=== PATIENT | male | born 1970 | race Caucasian/White ===

== ENCOUNTER → 2017-10-17 | Outpatient (CLI) | payer OTHER ==
[~2017-10-17] MED LIST: PRLSR20 PO; SIMV40TA2 PO
--- NOTE | 2017-10-17 17:16 | DIAGNOSTIC IMAGING REPORT ---
CHEST 2 VIEWS ROUTINE CLINICAL HISTORY: 47 years-old Male presenting with DYSPNEA ON EXERTION. TECHNIQUE: PA and lateral views of the chest were obtained. COMPARISON: None. FINDINGS: Cardiomediastinal silhouette normal. Minimal left basilar bandlike opacity. Mildly low lung volumes with hypoventilatory changes. No other focal infiltrate. No pleural effusion or pneumothorax. Osseous structures normal. Upper abdomen normal. IMPRESSION: 1. Minimal left basilar atelectasis or scarring. Mildly low lung volumes with hypoventilatory changes. Electronically signed by: Kelton Calderon M.D. 10/17/2017 5:15 PM Dictated Date/Time: 10/17/2017 5:14 PM
--- NOTE | 2017-10-17 17:18 | DIAGNOSTIC IMAGING REPORT ---
L KNEE 1 OR 2 VIEWS ROUTINE, R KNEE 1 OR 2 VIEWS ROUTINE CLINICAL HISTORY: 47 years-old Male presenting with KNEE PAIN. TECHNIQUE: Frontal, lateral, and sunrise views of the right and left knees were obtained. COMPARISON: None. FINDINGS: Right knee: No acute fracture or malalignment. No advanced degenerative change. No radiographic soft tissue abnormality. Left knee: No acute fracture or malalignment. No advanced degenerative change. No radiographic soft tissue abnormality. IMPRESSION: 1. No acute osseous injury of the right or left knee. Electronically signed by: Kelton Calderon M.D. 10/17/2017 5:17 PM Dictated Date/Time: 10/17/2017 5:15 PM
== END | disposition home or self-care (01) ==
LOC: MERGE 16:43 → C.RAD1850 16:43
PROVIDERS: ATTEND Internal Medicine
DX: R06.09 Other forms of dyspnea (principal); M25.561 Pain in right knee; M25.562 Pain in left knee

== ENCOUNTER → 2017-11-06 | Outpatient (CLI) | payer OTHER ==
[2017-11-06 10:07] LABS: BASO % 1.7 %; BASO ABS # 0.12 K/uL (0-0.2); EOS % 7.1 %; HEMATOCRIT 46.4 % (42-52); HEMOGLOBIN 16.1 g/dL (14.0-18.0); IG# 0.02 K/uL (0.00-0.02); LYMPH % 30.4 %; LYMPH ABS # 2.14 K/uL (1.2-3.4); MEAN CELL VOLUME 95.5 fL (80-100); MEAN CORPUSCULAR HEMOGLOBIN 33.1 pg (25-34); MEAN CORPUSCULAR HGB CONC 34.7 g/dl (32-36); MEAN PLATELET VOLUME 8.9 fL (7.4-10.4); MONO % 10.4 %; MONO ABS # 0.73 K/uL (0.11-0.59); NEUT % 50.1 %; NEUT ABS # 3.52 K/uL (1.4-6.5); PLATELET COUNT 270 K/uL (130-400); RED CELL DISTRIBUTION WIDTH CV 12.7 % (11.5-14.5); RED CELL DISTRIBUTION WIDTH SD 44.2 fL (36.4-46.3); WHITE BLOOD COUNT 7.03 K/uL (4.8-10.8)
[2017-11-06 10:48] LABS: ALBUMIN 3.7 gm/dl (3.4-5.0); ALT/SGPT 57 U/L (12-78); BLOOD UREA NITROGEN 18 mg/dl (7-18); CALCIUM 8.8 mg/dl (8.5-10.1); CARBON DIOXIDE 22 mmol/L (21-32); CREATININE 0.84 mg/dl (0.60-1.40); GLUCOSE 94 mg/dl (70-99); POTASSIUM 4.3 mmol/L (3.5-5.1); SODIUM 138 mmol/L (136-145)
[2017-11-06 10:57] LABS: ALKALINE PHOSPHATASE 73 U/L (45-117); AST/SGOT 23 U/L (15-37); CHOLESTEROL 284 mg/dl (0-200); LDL CHOLESTEROL CALCULATED 197 mg/dl; TOTAL PROTEIN 7.6 gm/dl (6.4-8.2)
== END | disposition home or self-care (01) ==
LOC: C.LAB1850 09:15
PROVIDERS: ATTEND Internal Medicine
DX: R10.9 Unspecified abdominal pain (principal); Z68.39 Body mass index [BMI] 39.0-39.9, adult; E78.5 Hyperlipidemia, unspecified

== ENCOUNTER 2021-02-26 06:40 | Observation (INO) ==
--- NOTE | 2021-01-04 14:13 | PAT Medication Instructions ---
Medication Instructions Date of Service January 04, 2021 Home Medications Medication Instructions Recorded atorvastatin 80 mg tablet 80 mg PO QPM #90 tab 07/06/20 tramadol 50 mg tablet 50 mg PO Q6H PRN #30 tab 12/01/20 tramadol 50 mg tablet 50 mg PO Q6H PRN #30 tab 12/01/20 tramadol 50 mg tablet 50 mg PO Q8H PRN #30 tab 01/01/21 albuterol sulfate 90 mcg/actuation aerosol inhaler 2 puffs INH Q6H PRN atorvastatin 80 mg tablet 80 mg PO QPM tramadol PRN allopurinol 100 mg PO QAM losartan 100 mg PO QAM meloxicam [Mobic] 15 mg PO QAM metoprolol tartrate 25 mg PO QAM naproxen 500 mg PO BID PRN omeprazole 20 mg PO QPM ASK your surgeon for instructions meloxicam [Mobic] 15 mg PO QAM naproxen 500 mg PO BID PRN Take morning of surgery With a small sip of water, OTHERWISE NOTHING TO EAT OR DRINK AFTER MIDNIGHT: albuterol sulfate 90 mcg/actuation aerosol inhaler 2 puffs INH Q6H PRN (use if needed; please bring rescue inhaler with you to hospital day of surgery if possible) tramadol PRN (okay to take up to 4 hours prior to surgery if needed) allopurinol 100 mg PO QAM metoprolol tartrate 25 mg PO QAM Take evening before surgery albuterol sulfate 90 mcg/actuation aerosol inhaler 2 puffs INH Q6H PRN (if needed) atorvastatin 80 mg tablet 80 mg PO QPM tramadol PRN (if needed) omeprazole 20 mg PO QPM Other Notes If you have any questions please call us at [phone] or [phone] or [phone] or [phone]
--- NOTE | 2021-01-10 14:28 | Anesthesiology Consultation ---
Date of Service January 10, 2021 Assessment & Plan (1) Encounter for pre-operative examination: - COVID screening: Per assessment on 01/10: Travel screen negative, no known COVID-19 positive contacts or current COVID-19 related symptoms. Surgeon arranging preop COVID testing. Awaiting results. - ETOH use: 5 beers + david at night (no morning ETOH use) Chart Review Chart Review: Acceptable Risk for Surgery and Patient seen in Pre Admission Testing Teaching & Discussion Pre-Anesthesia Teaching/Discussion Notes: Instructed NPO after midnight before surgery,except medications with 15 cc of water. Medication instructions provided according to the PAT guidelines. History Surgery Operation Date: 02/02/21 07:00 Proposed Procedures p Bilateral Total Knee Arthroplasty - Kodi Singh, Height/Weight Height: 5 ft 9 in Weight: 133.2 kg Allergies Allergy/AdvReac Type Severity Reaction Status Date / Time No Known Drug Allergies Allergy Unknown Verified 01/02/21 11:50 Medications Home Medications Medication Instructions Recorded Confirmed Last Taken albuterol sulfate 90 mcg/actuation 2 puffs INH Q6H PRN 02/20/19 01/02/21 Unknown aerosol inhaler atorvastatin 80 mg tablet 80 mg PO QPM #90 tab 07/06/20 01/02/21 Unknown tramadol 50 mg tablet 50 mg PO Q6H PRN #30 tab 12/01/20 01/02/21 Unknown tramadol 50 mg tablet 50 mg PO Q6H PRN #30 tab 12/01/20 01/02/21 Unknown tramadol 50 mg tablet 50 mg PO Q8H PRN #30 tab 01/01/21 01/02/21 Unknown allopurinol 100 mg PO QAM 01/02/21 01/02/21 Unknown losartan 100 mg PO QAM 01/02/21 01/02/21 Unknown meloxicam [Mobic] 15 mg PO QAM 01/02/21 01/02/21 Unknown metoprolol tartrate 25 mg PO QAM 01/02/21 01/02/21 Unknown naproxen 500 mg PO BID PRN 01/02/21 01/02/21 Unknown omeprazole 20 mg PO QPM 01/02/21 01/02/21 Unknown Past Medical History Medical History (Updated 01/10/21 @ 14:42 by Beth Drew) GERD (gastroesophageal reflux disease) controlled Morbid obesity Obstructive sleep apnea count not tolerate CPAP Exercise / Class Metabolic Activity III < 4 Walking/Shop/Light housework Past Family History Family History Family/Other Myocardial infarction Grandfather Lung disease Hypertension Mother Kidney stones Gallbladder disease Uncle Alcohol abuse Stroke Past Surgical History Surgical History H/O: vasectomy History of tooth extraction WTE Past Anesthesia History No Hx of Anesthesia Complications and No Family Hx of Anesthesia Complications History of PONV No Hx of PONV and No Hx of Motion Sickness Social History Smoking Status: Current every day smoker tobacco type: cigarettes and smokeless tobacco Smoking cigarettes per day: 15 cigs/day (tobacco use x 30 years) Do You Dip or Chew Tobacco: Yes (1 can/3-4 days- none DOS) Hx Alcohol Use: Yes Alcohol type: beer and wine alcohol intake frequency: 3 or more drinks per day (5 beers + david at night (n o morning ETOH use)) Hx Substance Use: No Review of Systems Patient denies chest pain, shortness of breath, fever, chills, cough, wheezing, palpitations. Physical Exam Vital Signs VITALS BP 147/94 P 80 TEMP 98.5 SP02 95%RA RESP 16 PHYSICAL Full cervical extension range of motion. Full TMJ range of motion. TMD 4 finger breaths Mallampati Score 2 Dentition: intact Lungs: clear throughout to auscultation Cardiac: regular rate and rhythm, no murmurs noted Spine: normal Carotid arteries: negative bruit Extremities: no edema Very thick neck Testing Laboratory Results 01/10/21 14:55 01/10/21 14:55 PT 9.9 Seconds (9.0-12.0) 01/10/21 14:55 INR 1.0 (0.9-1.1) 01/10/21 14:55 APTT 25.1 Seconds (21.0-31.0) 01/10/21 14:55 Blood Type AB Negative 01/10/21 14:55 Antibody Screen NEGATIVE 01/10/21 14:55 Electrocardiogram Date: 01/10/21 Findings: + NSR @ (73) Chest X-Ray Date: 01/10/21 FINDINGS:Cardiac silhouette is upper limits of normal in size. Mild left lung base opacities suggest atelectasis versus scarring. There is blunting of the costophrenic angles with mild hyperinflation. No pneumothorax, large pleural effusion or overt pulmonary edema. Bones of the chest appear grossly intact. IMPRESSION: No acute process.
--- NOTE | 2021-01-10 15:28 | XRay Report ---
XR chest Pre-admission PA/Lat HISTORY: 50 years-old Male pat chronic left knee pain with tricompartmental osteoarthritis COMPARISON: Chest radiographs 06/16/2018 TECHNIQUE: PA and lateral views of the chest FINDINGS: Cardiac silhouette is upper limits of normal in size. Mild left lung base opacities suggest atelectas is versus scarring. There is blunting of the costophrenic angles with mild hyperinflation. No pneumot horax, large pleural effusion or overt pulmonary edema. Bones of the chest appear grossly intact. IMPRESSION: No acute process. ACT 112: Negative or not required by law. The above report was generated using voice recognition software. It may contain grammatical, syntax o r spelling errors. Electronically signed by: Eliseo Ho M.D. 01/10/2021 3:27 PM
[2021-01-10 15:42] LABS: Basophils # (auto) 0.08 K/uL (0-0.2); Basophils % (auto) 1.1 %; Eosinophils # (auto) 0.39 K/uL (0-0.5); Eosinophils % (auto) 5.5 %; Hematocrit (blood only) 46.7 % (42-52); Hemoglobin 16.3 g/dL (14.0-18.0); Immature Granulocytes # (auto) 0.01 K/uL (0.00-0.02); Immature Granulocytes % (auto) 0.1 %; Lymphocytes % (auto) 29.7 %; Mean Corpuscular Hemoglobin 33.2 pg (25-34); Mean Corpuscular Hgb Conc 34.9 g/dL (32-36); Mean Corpuscular Volume 95.1 fL (80-100); Monocytes # (auto) 0.68 K/uL (0.11-0.59); Monocytes % (auto) 9.6 %; Platelet Count 249 K/uL (130-400); RDW Coefficient of Variation 12.6 % (11.5-14.5); RDW Standard Deviation 43.5 fL (36.4-46.3); Red Blood Count 4.91 M/uL (4.7-6.1); White Blood Count 7.06 K/uL (4.8-10.8)
[2021-01-10 15:55] LABS: Partial Thromboplastin Time 25.1 Seconds (21.0-31.0); Prothrombin Time 9.9 Seconds (9.0-12.0)
[2021-01-10 16:16] LABS: Calcium 9.9 mg/dl (8.5-10.1); Creatinine Clr Calc Pharmacy 135.9 ml/min; Est GFR (African American) 116.1; Est GFR (Non-African American) 100.2; Potassium 3.9 mmol/L (3.5-5.1)
--- NOTE | 2021-01-10 16:45 | Electrocardiogram Report ---
Test Reason : Blood Pressure : / mmHG Vent. Rate : 073 BPM Atrial Rate : 073 BPM P-R Int : 176 ms QRS Dur : 088 ms QT Int : 406 ms P-R-T Axes : 056 047 048 degrees QTc Int : 447 ms Normal sinus rhythm Normal ECG No previous ECGs available Confirmed by Lloyd Remy ([id number]) on 01/10/2021 4:44:40 PM Referred By: Kodi Singh Confirmed By:Lloyd Remy
--- NOTE | 2021-02-22 14:00 | History & Physical Report ---
Date of Service February 22, 2021 Assessment & Plan (1) Osteoarthritis of knees, bilateral: We will proceed with bilateral total knee arthroplasties. Postoperatively he will be kept overnight in the hospital for postoperative medical management and started on aspirin for DVT prophylaxis. He plans to use energy physical therapy upon discharge. He understands she is at increased risk for the procedure due to his BMI of 43.4 and his smoking habit, which he claims he stopped smoking 4 weeks ago. History of Present Illness Chief Complaint: Osteoarthritis of bilateral knees Primary Care Provider: José Luis Ramirez MD Marcus is a pleasant 50-year-old male who is been having a 10-year history of bilateral knee pain. He has been receiving injections of his knees over the past 10 years. X-rays and MRI show advanced osteoarthritis of his knees with his left worse than his right. After failing years of conservative treatment, he has elected proceed with bilateral total knee arthroplasties.. Allergies Allergy/AdvReac Type Severity Reaction Status Date / Time No Known Drug Allergies Allergy Unknown Verified 01/02/21 11:50 Home Medications Medication Instructions Recorded Confirmed Type albuterol sulfate 90 mcg/actuation 2 puffs INH Q6H PRN 02/20/19 02/14/21 History aerosol inhaler atorvastatin 80 mg tablet 80 mg PO QPM #90 tab 07/06/20 02/14/21 Rx tramadol 50 mg tablet 50 mg PO Q6H PRN #30 tab 12/01/20 02/14/21 Rx tramadol 50 mg tablet 50 mg PO Q6H PRN #30 tab 12/01/20 02/14/21 Rx tramadol 50 mg tablet 50 mg PO Q8H PRN #30 tab 01/01/21 02/14/21 Rx losartan 100 mg PO QAM 01/02/21 02/14/21 History meloxicam [Mobic] 15 mg PO QAM 01/02/21 02/14/21 History naproxen 500 mg PO BID PRN 01/02/21 02/14/21 History allopurinol 100 mg tablet 100 mg PO QAM #90 tab 02/02/21 02/14/21 Rx metoprolol tartrate 25 mg tablet 25 mg PO Q12H #180 tab 02/07/21 02/14/21 Rx omeprazole 20 mg capsule,delayed 20 mg PO QPM #30 cap 02/22/21 Rx release Past Med/Surg History Medical History GERD (gastroesophageal reflux disease) controlled Morbid obesity Obstructive sleep apnea count not tolerate CPAP Surgical History H/O: vasectomy History of tooth extraction WTE Family History Family/Other Myocardial infarction Grandfather Lung disease Hypertension Mother Kidney stones Gallbladder disease Uncle Alcohol abuse Stroke Social History Smoking Status: Never smoker packs per day: 1; Cigarettes Per Day: 15 cigs/day (tobacco use x 30 years); Second Hand Exposure: Yes; Hx Alcohol Use: Yes Alcohol type: beer and hard liquor Alcohol Intake Frequency Comment: Pt reported drinking one 30 pack weekly and one 2.75 liter bottle of david Hx Substance Use: No Preferred Language: Kiswahili Communication Ability: Effective Ham Marker Required: No Beliefs That Will Affect Care: Mu-Ism Mu-Ism Beliefs: RAISED HOLINESS-DOES NOT NOT WANT BLOOD PRODUCTS marital status: Single Current Living Situation: Alone current occupational status: employed Feels Safe at Home: Yes Dental Care, Regularly: No Seatbelt Use: always Assistive Devices: Glasses Review of Systems All systems reviewed & are unremarkable except as noted in HPI & below. Physical Exam Annual examination of both knees, he has a trace effusion. Is good motion of 0 to 125 degrees. He has no instability. He has pain over the distal medial femoral condyle and over the medial joint lines.. Constitutional WD/WN, vitals as above Eyes PERRL, conjunctivae normal, anicteric sclerae ENMT external ear and nose normal, oropharynx normal Neck trachea midline, no thyromegaly Respiratory normal respiratory effort Cardiovascular RRR, no murmur, no edema Gastrointestinal (Abdomen) normal bowel sounds, soft, nontender, no hepatosplenomegaly Psychiatric A+Ox3, euthymic affect Results & Data Results & Data Laboratory Results . Diagnostic Findings X-rays of both knees do show some osteoarthritis with some joint space narrowing and osteophyte formation. The left knee looks worse than the right. MRI images of the left knee does show advanced osteoarthritis with some subchondral edema.. PG Care Time/CCT Total # of Minutes Spent Total Time Spent with Patient: Total time spent is greater than 50% in coordination of care (as documented) at patient's floor/unit and/or counseling patient: Coding Level of Care Code None Diagnoses Osteoarthritis of knees, bilateral M17.0
[~2021-02-26 06:40] MED LIST changes: +ACETAMINOPHEN 500 MG TAB PO SCH; +BUPIVACAINE 0.25% 30 ML VIAL ONE; +BUPIVACAINE 0.5 % 5 MG/1 ML PF 10ML VIAL ONE; +FAMOTIDINE 20 MG TAB PO SCH; +GABAPENTIN 900 MG DOSE PO SCH; +LR 60ML/HR IV SCH; -PRLSR20 PO; +ROPIVACAINE 0.5% HCL/PF 150 MG, BUPIVACAINE 0.75% MPF 20 ML, EPINEPHrine 30MG/30ML (OR ... INSTIL SCH; -SIMV40TA2 PO; +TRANEXAMIC ACID 1,000 MG **IV Pre-op IV SCH; +dexAMETHasone 4 MG TAB PO SCH
[2021-02-26] MEDS ORDERED: MIDAZOLAM HCL 1 MG/ML 2ML VIAL ONE ×3 (07:45→09:06)
[2021-02-26] MEDS ORDERED: fentaNYL citrate 100 MCG/2 ML VIAL ONE ×2 (07:45→12:07)
--- NOTE | 2021-02-26 08:15 | History & Physical Bridge Note ---
Date of Service February 26, 2021 History & Physical Bridge Note I have examined the patient, reviewed the History & Physical and in the interval since the performance of the History & Physical I have noted the following changes of clinical significance: no changes noted
[2021-02-26] MEDS ORDERED: fentaNYL citrate 100 MCG/2 ML VIAL IV PRN (08:18)
[2021-02-26] MEDS ORDERED: ATROPINE SULFATE 0.1 MG/ML 10ML SYR IV PRN (08:18)
[2021-02-26] MEDS ORDERED: ePHEDrine sulfate 50 MG/ML AMP IV PRN (08:18)
[2021-02-26] MEDS ORDERED: ONDANSETRON INJ 2 MG/ML 2 ML VIAL IV PRN ×2 (08:18→16:27)
[2021-02-26] MEDS: TRANEXAMIC ACID 1,000 MG **IV Intra-op IV SCH ×2 (08:22→11:12)
[2021-02-26] MEDS ORDERED: ORTHO JOINT ANESTHETIC ONE (08:40)
[2021-02-26] MEDS ORDERED: KETAMINE 50 MG/5 ML SYRINGE ONE (09:18)
[2021-02-26] MEDS ORDERED: PROPOFOL IV EMULSION 10 MG/ML 20 ML VIAL IV ONE (10:54)
[2021-02-26] MEDS ORDERED: LIDOCAINE 2% 20 MG/ML 5 ML SYR IV ONE (10:54)
[2021-02-26] MEDS ORDERED: ONDANSETRON INJ 2 MG/ML 2 ML VIAL ONE (10:54)
--- NOTE | 2021-02-26 11:14 | Operative Report ---
PG Post Operative Report Pre & Post Diagnosis Operation Date: 02/26/21 08:50 Pre-Op Diagnosis: Bilateral Knee Degenerative Joint Disease Post-Op Diagnosis: Bilateral Knee Degenerative Joint Disease I identified the patient and participated in the time-out.: Yes Procedure Operation Date: 02/26/21 08:50 Actual Procedures p Bilateral Total Knee Arthroplasty, Cemented(Bilateral) - Kodi Singh DO Surgeon Kodi Singh DO Site Acquisition Specialist Kodi Rubi PAC Estimated Blood Loss 20 Findings Consistent with Post-Op Diagnosis Specimens Bilateral femoral and tibial bone Complications none Disposition Disposition: Recovery Room Indications Marcus is a pleasant 50-year-old male who is been dealing with a 10-year history of bilateral knee pain. X-rays, MRIs, and physical examination were diagnostic for medial compartment arthritis of both knees. After failing conservative treatment, he elected proceed with bilateral total knee arthroplasties. Description of Procedure Marcus arrived [facility] for the above procedure. He was seen in the preoperative holding area and both knees were identified and signed. He was given a preoperative antibiotic, TXA, a spinal anesthetic and adductor nerve blocks. He was taken back to the operating room and laid on the table in supine position. He was given basic sedation. Both knees were then prepped and draped in sterile fashion. A timeout was done, and the patient and the operative extremities were properly identified. Right knee implants used: I used a Deneen Persona total knee arthroplasty system with a size 9 standard femur, G tibia, 32 patella, and a size 10 medial congruent polyethylene bearing. All components were cemented in place with Palacos G cement. A midline incision was made directly over the patella. Dissection was taken down to the extensor mechanism. A subvastus arthrotomy was used. The medial retinaculum was released and the fat pad was mostly excised. The knee was flexed and the ACL, PCL, and meniscus were removed. A drill was sent down the center of the femoral canal followed by an intramedullary yenni. Off that yenni a distal femoral cutting block was placed. 9 mm was resected off the distal femur at 5 of valgus. A posterior referencing AP sizing guide was then placed on the distal femur. The femur measured to be a size 9. 2 drill holes were placed in 3 of external rotation. A 4-in-1 cutting block was then impacted into place. Anterior, posterior, and chamfer cuts were then made. The proximal tibia was then exposed. An external tibial alignment guide was placed. A tibial cut guide was then anchored in place and the proximal tibia was then resected. The posterior aspect of the knee was then opened up and any additional meniscus fragments and osteophytes were removed. The tibia measured to be a size G. The tibial plate was then placed in the appropriate rotation and the tibia was drilled and punched. Trial components were then placed. I used a size 10 medial congruent polyethylene insert. The knee was brought through a full range of motion and felt to be stable. The peg holes for the femur were then drilled. The patella was then everted and 9 mm was resected off the posterior aspect of the patella. The patella measured to be a size 32. 3 peg holes were then drilled. A trial patella was placed. The knee was once again brought through a full range of motion and felt to be stable. Trial components were then removed. The surrounding soft tissues were injected with 50 cc of an orthopedic pain control cocktail. All components were then cemented into place with Palacos G cement. The final polyethylene insert was then snapped into place. Once cement was dry the tourniquet was deflated. Hemostasis was obtained. A dilute betadyne lavage was then done for 3 minutes. The joint was then irrigated with normal saline solution. The subvastus arthrotomy was then closed with #1 Vicryl suture. The skin was closed with 2-0 Vicryl, 3-0V lock suture, and steve. A Silverlon and a soft compressive dressing were placed. Left knee implants used: I used a Deneen Persona total knee arthroplasty system with a size 9 standard femur, G tibia, 32 patella, and a size 11 medial congruent polyethylene bearing. All components were cemented in place with Palacos G cement. A midline incision was made directly over the patella. Dissection was taken down to the extensor mechanism. A subvastus arthrotomy was used. The medial retinaculum was released and the fat pad was mostly excised. The knee was f lexed and the ACL, PCL, and meniscus were removed. A drill was sent down the center of the femoral canal followed by an intramedullary yenni. Off that yenni a distal femoral cutting block was placed. 9 mm was resected off the distal femur at 5 of valgus. A posterior referencing AP sizing guide was then placed on the distal femur. The femur measured to be a size 9. 2 drill holes were placed in 3 of external rotation. A 4-in-1 cutting block was then impacted into place. Anterior, posterior, and chamfer cuts were then made. The proximal tibia was then exposed. An external tibial alignment guide was placed. A tibial cut guide was then anchored in place and the proximal tibia was then resected. The posterior aspect of the knee was then opened up and any additional meniscus fragments and osteophytes were removed. The tibia measured to be a size G. The tibial plate was then placed in the appropriate rotation and the tibia was drilled and punched. Trial components were then placed. I used a size 11 medial congruent polyethylene insert. The knee was brought through a full range of motion and felt to be stable. The peg holes for the femur were then drilled. The patella was then everted and 9 mm was resected off the posterior aspect of the patella. The patella measured to be a size 32. 3 peg holes were then drilled. A trial patella was placed. The knee was once again brought through a full range of motion and felt to be stable. Trial components were then removed. The surrounding soft tissues were injected with 50 cc of an orthopedic pain control cocktail. All components were then cemented into place with Palacos G cement. The final polyethylene insert was then snapped into place. Once cement was dry the tourniquet was deflated. Hemostasis was obtained. A dilute betadyne lavage was then done for 3 minutes. The joint was then irrigated with normal saline solution. The subvastus arthrotomy was then closed with #1 Vicryl suture. The skin was closed with 2-0 Vicryl, 3-0V lock suture, and steve. A Silverlon and a soft compressive dressing were placed. He was then transferred to a hospital bed and taken to the postanesthesia care unit in stable condition. He tolerated the procedure well. Kodi Rubi PA-C, was present for the entire procedure. He was critical for patient positioning, prepping, draping, retraction exposure, wound closure and application of sterile dressing. I attest to the content of the Intraoperative Record and any orders documented therein. Any exceptions are noted below.
--- NOTE | 2021-02-26 12:18 | XRay Report ---
XR knee RT 1 or 2V routine HISTORY: 50 years-old Male Surgical Post Op right knee total joint arthroplasty COMPARISON: 10/17/2017 TECHNIQUE: 2 views of the right knee FINDINGS: Right knee total joint arthroplasty and patella resurfacing. Anterior midline skin steve are noted along with expected postoperative soft tissue swelling and deep tissue air. No acute fracture, malali gnment or unexpected opaque foreign body. IMPRESSION: Right knee total joint arthroplasty and patella resurfacing with expected postoperative c hanges. ACT 112: Negative or not required by law. The above report was generated using voice recognition software. It may contain grammatical, syntax o r spelling errors. Electronically signed by: Eliseo Ho M.D. 02/26/2021 12:16 PM
--- NOTE | 2021-02-26 12:18 | XRay Report ---
XR knee LT 1 or 2V routine CLINICAL HISTORY: Surgical Post Op COMPARISON: October 17, 2017 DISCUSSION: Interval placement of a prosthetic left knee joint is seen. Subcutaneous edema, soft tissue swelling and skin steve are seen. IMPRESSION: Postoperative changes as detailed above. ACT 112: Negative or not required by law. The above report was generated using voice recognition software. It may contain grammatical, syntax o r spelling errors. Electronically signed by: Lenka Ram DO 02/26/2021 12:16 PM
--- NOTE | 2021-02-26 12:29 | Anesthesiology Progress Note ---
Date of Service February 26, 2021 Anesthesia Post Procedure Vital Signs Vital Signs: Temp Pulse Pulse Resp BP BP Pulse Ox 02/26/21 12:25 65 16 131/91 92 02/26/21 12:15 66 16 144/81 H 93 02/26/21 12:05 97.5 F L 69 16 135/87 93 02/26/21 11:55 71 16 113/86 90 02/26/21 11:45 97.2 F L 86 12 110/92 90 02/26/21 07:45 98.1 F 85 18 145/87 H 91 Transfer of Care Handoff Completed per policy Notes Mental Status: alert / awake / arousable and participated in evaluation Patient Amnestic to Procedure: Yes Nausea / Vomiting: adequately controlled Pain: adequately controlled Airway Patency, RR, SpO2: stable & adequate BP & HR: stable & adequate Hydration State: stable & adequate Neuraxial Anesthesia: was administered and sensory block is resolving Anesthetic Complications: no major complications apparent and Pt Satisfied with anesthetic care
[2021-02-26] MEDS ORDERED: LARYING-O-JET KIT (LTA) ONE (12:38)
[2021-02-26] MEDS ORDERED: DEXAMETHASONE SOD INJ 4 MG/ML VIAL ONE (12:38)
[2021-02-26] MEDS ORDERED: ePHEDrine sulfate 50 MG/ML AMP ONE (12:38)
[2021-02-26] MEDS ORDERED: METOCLOPRAMIDE HCL INJ 5 MG/ML 2 ML VIAL IV PRN (16:27)
[2021-02-26] MEDS ORDERED: NALOXONE HCL 0.4 MG/1 ML VIAL/CARP IV PRN (16:27)
[2021-02-26] MEDS ORDERED: ALBUTEROL HFA 8 GM INHALER INH PRN (16:27)
[2021-02-26] MEDS ORDERED: MAGNESIUM HYDROXIDE SUSP 30 ML UDC PO PRN (16:27)
[2021-02-26] MEDS ORDERED: bisacodyL 10 MG SUPP PR PRN (16:27)
[2021-02-26] MEDS ORDERED: HYDROmorphone INJ 0.5 MG/0.5 ML SYR IV PRN (16:27)
[2021-02-26] MEDS ORDERED: SODIUM CHLORIDE 0.9% 1000ML 1,000 ML IV SCH (16:45)
[2021-02-26] MEDS: ACETAMINOPHEN 500 MG TAB PO SCH ×2 (17:56→20:37)
[2021-02-26] MEDS: METOPROLOL TARTRATE 25 MG TAB PO SCH (17:56)
[2021-02-26] MEDS: ceFAZolin 2000MG 2,000 MG/15 ML SYR IV SCH ×2 (18:00→23:56)
[2021-02-26] MEDS: KETOROLAC 30 MG/ML VIAL IV SCH ×2 (18:00→23:57)
[2021-02-26] MEDS: ASPIRIN 81 MG ECTAB PO SCH (20:36)
[2021-02-26] MEDS: DOCUSATE SODIUM 100 MG CAP PO SCH (20:36)
[2021-02-26] MEDS: oxyCODONE HCL IR 5 MG TAB (IMMEDIATE RELEASE) PO PRN (20:37)
[2021-02-26] MEDS ORDERED: SENNA 8.6 MG TAB PO SCH (21:00)
[2021-02-26] MEDS ORDERED: ATORVASTATIN 40 MG TAB PO SCH (21:00)
[2021-02-27] MEDS ORDERED: Nursing to Pharmacy Communication SCH (00:30)
[2021-02-27] MEDS: METOPROLOL TARTRATE 25 MG TAB PO SCH (05:11)
[2021-02-27] MEDS: KETOROLAC 30 MG/ML VIAL IV SCH ×2 (05:12→12:12)
[2021-02-27] MEDS: ACETAMINOPHEN 500 MG TAB PO SCH (05:12)
--- NOTE | 2021-02-27 06:34 | Orthopedic Progress Note ---
Date of Service February 27, 2021 Assessment & Plan (1) Status post bilateral knee replacements: Overall is doing very well. Is not having much pain in the knees at this point. He will be seen by physical therapy today for ambulation and range of motion exercises. He is on aspirin for DVT prophylaxis. He would like to be discharged home today. The dressings can be changed before discharge. He will follow-up with orthopedics in 2 weeks. Bradley Swartz was seen and examined at bedside this morning. Overall is doing very well. Is not having much pain in the knees. He has not been up and ambulating yet. He has no complaints.. Review of Systems All systems reviewed & are unremarkable except as noted in HPI & below. Physical Exam On physical examination of both knees, the dressings are clean and dry. He has active dorsiflexion plantarflexion of his ankles. Sensations intact.. Results & Data Results & Data Laboratory Results . Diagnostic Findings Postoperative x-rays of both knees show the prosthesis to be in anatomic alignment without any evidence of fracture, dislocation, or loosening. PG Care Time/CCT Total # of Minutes Spent Total Time Spent with Patient: Total time spent is greater than 50% in coordination of care (as documented) at patient's floor/unit and/or counseling patient: Coding Level of Care Code 00802 Post Operative Follow-Up Diagnoses Status post bilateral knee replacements Z96.653
--- NOTE | 2021-02-27 06:35 | Discharge Summary ---
Date of Service February 27, 2021 Admission HPI (Per Admitting) Marcus is a pleasant 50-year-old male who is been having a 10-year history of bilateral knee pain. He has been receiving injections of his knees over the past 10 years. X-rays and MRI show advanced osteoarthritis of his knees with his left worse than his right. After failing years of conservative treatment, he has elected proceed with bilateral total knee arthroplasties.. Admission Exam (Per Admitting) Annual examination of both knees, he has a trace effusion. Is good motion of 0 to 125 degrees. He has no instability. He has pain over the distal medial femoral condyle and over the medial joint lines.. Principal Diagnosis Same as "Discharge Diagnosis" noted below under Discharge Instructions. Discharge Exam On physical examination of both knees, the dressings are clean and dry. He has active dorsiflexion plantarflexion of his ankles. Sensations intact.. Discharge Data Procedures Performed Operation Date: 02/26/21 08:50 Actual Procedures p Bilateral Total Knee Arthroplasty, Cemented(Bilateral) - Kodi Singh DO Ordered Studies 02/26/21 05:00 US - OR guided needle placemen Routine Hospital Course (1) Status post bilateral knee replacements: On February 26, 2021 Maxime arrived at [facility] and underwent bilateral knee replacements without complication. He had a spinal anesthetic. Postoperatively he was started on aspirin for DVT prophylaxis and transferred to the general orthopedic floors. His hospital course was uneventful. On postop day #1 his vital signs were stable and his pain was well controlled. He was able to participate well with physical therapy doing ambulation and range of motion exercises. He was then discharged home. He will follow-up with orthopedics in 2 weeks. PG Care Time/CCT Total # of Minutes Spent Total Time Spent with Patient: Total time spent is greater than 50% in coordination of care (as documented) at patient's floor/unit and/or counseling patient: Discharge Plan Discharge Items Patient Disposition: Home - Home Health Services Reason For Visit: Bilateral Degenerative Joint Disease Knees Discharge Diagnosis: Bilateral knee replacements Activity: As commented below Non-emergency contact: Surgeon Call non-emergency contact if: your wound has increased redness and your wound has increased drainage Follow-up/Referrals: Gasper Ramirez MD [Primary Care Provider] - Diet: Regular Addtl Attending Provider Instructions: Activity and Therapy Recommendations: * If you are using [facility] then therapy will be provided at your home until they feel you have accomplished all of your goals. * If you are using [facility] then Physical Therapy will be provided until they feel you are ready to start Outpatient Physical Therapy. * If you are not using home therapy then Outpatient Physical Therapy should start about 3-5 days from your day of surgery. Therapy will last about 6-10 weeks * It is important not to put a pillow under your knee when you are relaxing or sleeping. It is just as important to make sure you are getting your knee perfectly straight as it is to regain your knee bend. * You were shown a series of exercises in the hospital. Do these exercises three times each day including the exercises you were shown in physical therapy. * Get up and walk several times each day. For the first four weeks, try not to stand or walk for more than one hour at a time. If you do stand or walk for more than one hour, you will not hurt anything, but your leg will likely swell. * As you feel comfortable, you may change from the walker or crutches to a cane and then to independent walking. Medications: * Narcotic You will likely be sent home from the hospital with a prescription for the narcotic pain medication that worked best throughout your stay. * Aspirin Most patients will be required to take Aspirin 81mg twice a day for 6 weeks after surgery. This is obtained [id number] and a prescription is not necessary. * Other medications may be prescribed for specific circumstances. If you have any questions, please call the office at . * Resume previous home medications unless otherwise instructed TEDs/Elastic Stockings: The white elastic stockings help limit swelling and prevent blood clots from forming in your legs.~ The more you wear them, the more they work. Wear them for six weeks. Dressing Care: The dressing can be changed after physical therapy on postop day #1. Daily dry dressing changes for a few days, especially if the incision is still draining some. If the incision is not draining then you may leave the steve open to air. If there is a little bit of drainage or if the steve are getting stuck on your clothing then cover the incision with a dry dressing. The steve will be removed at your 2 week follow-up appointment. Showering: You may shower 5 days from the day of surgery as long as the incision is no longer draining. You may shower with the steve exposed. Let soapy water run over the steve and pat them dry. Do not scrub or soak the incision. Things To Watch For: * Drainage from the incision site that occurs more than one week after your surgery. * Increased redness at the incision site. * Fever above 102 degrees Fahrenheit. * Unusual chest pain or shortness of breath. * Call [facility] at with any of the above pr oblems Follow-Up Visit: Follow-up with Dr. Singh's PA (Kodi Rubi) 2-3 weeks after your day of surgery. He will remove your steve and answer any questions. If you have any additional questions or concerns, Dr Singh is usually in the office at the same time and will be available An appointment was probably scheduled when you signed-up for surgery in the office. If you have any questions call Office Instructions: More detailed instructions as well as Frequently Asked Questions were provided in a folder by our office when you signed-up for surgery. Please review these instructions when you get home. If you have any further questions or concerns, please feel free to call the office at [phone] Pending Studies at Discharge: No Stand-Alone Forms: My [facility] Medications and DC Order Prescriptions: New oxycodone 5 mg Tablet 5 mg PO Q4H PRN (Reason: pain) Qty: 60 RF: 0 aspirin 81 mg Tablet,Delayed Release (Dr/Ec) 81 mg PO BID 42 Days Qty: 84 RF: 0 Continued atorvastatin [Lipitor] 80 mg tablet 80 mg PO QPM Qty: 90 RF: 3 tramadol 50 mg tablet 50 mg PO Q6H PRN (Reason: pain) Qty: 30 RF: 0 tramadol 50 mg tablet 50 mg PO Q8H PRN (Reason: pain) Qty: 30 RF: 0 metoprolol tartrate 25 mg tablet 25 mg PO Q12H Qty: 180 RF: 3 omeprazole 20 mg capsule,delayed release(DR/EC) 20 mg PO QPM Qty: 30 RF: 5 albuterol sulfate [Proventil HFA] 90 mcg/actuation HFA aerosol inhaler 2 puffs INH Q6H PRN (Reason: Wheezing) RF: 0 meloxicam [Mobic] 15 mg tablet 15 mg PO QAM RF: 0 losartan 100 mg tablet 100 mg PO QAM RF: 0 naproxen 500 mg tablet 500 mg PO BID PRN (Reason: Pain) RF: 0 allopurinol [Zyloprim] 100 mg tablet 100 mg PO QAM RF: 0 Discharge Orders: Discharge Order (Routine); Ordered 02/27/21 Ordered By: Kodi Singh Admission Data Admit Date/Time: 02/26/21 11:49 Attending Provider: Kodi Singh Admit Provider: Kodi Singh Primary Care Provider: Gasper Ramirez
[2021-02-27] MEDS ORDERED: dexAMETHasone 4 MG TAB PO SCH (08:00)
[2021-02-27] MEDS: oxyCODONE HCL IR 5 MG TAB (IMMEDIATE RELEASE) PO PRN (08:14)
[2021-02-27] MEDS: DOCUSATE SODIUM 100 MG CAP PO SCH (08:15)
[2021-02-27] MEDS: ASPIRIN 81 MG ECTAB PO SCH (08:15)
[2021-02-27] MEDS ORDERED: allopurinoL 100 MG TAB PO SCH (09:00)
[2021-02-27] MEDS ORDERED: MULTIVITAMIN TAB PO SCH (09:00)
[2021-02-27] MEDS ORDERED: LOSARTAN POTASSIUM 50 MG TAB PO SCH (09:00)
== END 2021-02-27 14:11 | disposition home health service (06) ==
LOC: PACUINP 06:40 → ASU 06:40 → 3E 16:10

== ENCOUNTER 2021-04-27 14:13 | Inpatient (IN) ==
[2021-04-27] MEDS ORDERED: XYLOCAINE 1%/SOD BICARB 20 ML VIAL INFIL ONE (16:05)
--- NOTE | 2021-04-27 16:24 | XRay Report ---
XR knee RT 3V HISTORY: 50 years-old Male swelling acute pain and swelling of the right knee COMPARISON: 02/26/2021 TECHNIQUE: 3 views of the right knee FINDINGS: Total joint arthroplasty and patella resurfacing. Large joint effusion with moderate circumferential soft tissue swelling, most pronounced anteriorly. No acute fracture, dislocation, opaque foreign body or osseous erosion. IMPRESSION: 1. Total joint arthroplasty and patella resurfacing. No acute fracture. 2. Large joint effusion with moderate soft tissue swelling. ACT 112: Negative or not required by law. The above report was generated using voice recognition software. It may contain grammatical, syntax o r spelling errors. Electronically signed by: Eliseo Ho M.D. 04/27/2021 4:23 PM
--- NOTE | 2021-04-27 16:40 | Emergency Department Note ---
Impression & Plan Pain and swelling of right knee ED Provider Note INFORMANT: Patient ED PROVIDER(S): Haroon Munoz MD CHIEF COMPLAINT: Right knee pain PLAN: Disposition: Admitted Condition: Good Outpatient prescription management: none Referral: None patient presented to the emergency department because of concerns of infection. The patient was evaluated MEDICAL DECISION MAKING: Myself as well as his resource specialist Dr. Singh. He had a moderate amount of fluid on the right knee. Dr. Singh did drain this. The patient did have a white count. His blood work and fluid analysis was concerning for infection. The patient had unremarkable x-ray imaging except for swelling. The patient and Dr. Singh agreed that intervention is necessary and the patient will be taken to the operating room. Dr. Singh did asked to hold on antibiotics until he can get the patient into the operative suite. Triage Nursing notes reviewed and agree them. Vital Signs: reviewed and remarkable for no significant abnormalities Differential diagnosis: Knee effusion, hemarthrosis, postoperative wound infection, DVT, trauma, lymphedema, idiopathic, as well as other pathologies. Diagnostics interpreted by me: ECG: none Cardiac Monitoring: none Imaging studies: X-ray ridging of the right knee is negative for fracture or dislocation. I refer you to the EMR for further details. HPI: The patient is a 50 year old male who presents to the Emergency Room with complaints of right knee swelling. This started today and is worsening. The patient also notes the following associated symptoms, fever yesterday, joint r edness. The patient had a knee replacement done [address] Singh. Denies any tick bites or trauma.. The patient has taken no medication for relieving factors. Current pain is rated as 2/10. Pt denies LOC, headache, diaphoresis, visual changes, neck pain, chest pain, breathing difficulties, nausea, vomiting, abdominal pain, back pain, melena, hematochezia, urinary symptoms, numbness, weakness, lymphadenopathy, rash, or other complaints. ROS: See above HPI for pertinent positives & negatives. A total of 10 systems reviewed and were otherwise negative. PAST MEDICAL HISTORY:See Below , osteoarthritis PAST SURGICAL HISTORY:See Below, bilateral total knee replacement FAMILY HISTORY:See Below SOCIAL HISTORY:See Below, employed HOME MEDICATIONS:See Below ALLERGIES:See Below VITALS:See Below PHYSICAL EXAMINATION: GENERAL: Awake, alert, well-appearing, in no distress HENT: Normocephalic, atraumatic. Oropharynx unremarkable. EYES: Normal conjunctiva. Sclera non-icteric. NECK: Inspection normal. Non-tender. Supple. No nuchal rigidity. FROM. No masses. RESPIRATORY: Clear to auscultation. No wheezes. No rales. Normal respiratory effort. CARDIAC: Normal rate. Normal rhythm. No murmurs. No rubs. Extremities warm and well perfused. Pulses equal. No JVD. GI: Soft, non-distended. No tenderness to palpation. No rebound or guarding. No masses. RECTAL: Deferred. MUSCULOSKELETAL: Atraumatic. Chest examination reveals no tenderness. The back is symmetrical on inspection without obvious abnormality. There is no CVA tenderness to palpation. No joint edema. LOWER EXTREMITIES: Calves are equal size bilaterally and non-tender. There is marked swelling and fluctuance of the right knee. Erythema noted. No wound dehiscence or incisional drainage. Remainder of the right lower leg is unremarkable. Left knee replacement site appears normal. NEURO: Normal sensorium. No sensory or motor deficits noted. SKIN: No rash or jaundice noted. Haroon Munoz MD Past Med/Surg History Medical History Current use of aspirin per pt is taking 81mg of aspirin bid per Dr. Singh for DVT prophylaxis after bilt tka Dyspnea on exertion GERD (gastroesophageal reflux disease) controlled Hyperlipidemia Hypertension Morbid obesity BMI 43.5 Obstructive sleep apnea count not tolerate CPAP Refusal of blood transfusions as patient is Holiness Tobacco abuse Surgical History H/O: vasectomy History of tooth extraction WTE S/P knee replacement bilateral knee 02/26/2021 Family History Family/Other Myocardial infarction Grandfather Lung disease Hypertension Mother Kidney stones Gallbladder disease Uncle Alcohol abuse Stroke Other No family history of adverse response to anesthesia Denies family history of Ovarian cancer Prostate cancer Breast cancer Colorectal cancer Social History Smoking Status: Current every day smoker Tobacco Type: Cigarettes packs per day: 1; Cigarettes Per Day: 15 cigs/day (tobacco use x 30 years); Second Hand Exposure: Yes; Hx Alcohol Use: Yes Alcohol type: beer and hard liquor Alcohol Intake Frequency Comment: Pt reported drinking one 30 pack weekly and one 2.75 liter bottle of david Hx Substance Use: No Preferred Language: [place] Islander Communication Ability: Effective Cst Required: No Beliefs That Will Affect Care: Caodaism Caodaism Beliefs: RAISED MANDAEN-DOES NOT NOT WANT BLOOD PRODUCTS marital status: Current Living Situation: Alone current occupational status: employed Feels Safe at Home: Yes Dental Care, Regularly: No Physical Activity Frequency: 5-6 Times per Week Seatbelt Use: always Assistive Devices: Contacts and Glasses Allergies Allergies Allergy/AdvReac Type Severity Reaction Status Date / Time No Known Drug Allergies Allergy Unknown Unknown Verified 04/27/21 14:56 Home Meds Home Medications Medication Instructions Recorded Confirmed albuterol sulfate 90 mcg/actuation 2 puffs INH Q6H PRN 02/20/19 04/27/21 aerosol inhaler (Proventil HFA) allopurinol 100 mg tablet 100 mg PO QAM 02/26/21 04/27/21 (Zyloprim) Previous Rx's Medication Instructions Recorded metoprolol tartrate 25 mg tablet 25 mg PO Q12H #180 tab 02/07/21 meloxicam 15 mg tablet (Mobic) 15 mg PO QAM #30 tab 03/02/21 omeprazole 20 mg capsule,delayed 20 mg PO QPM #30 cap 03/02/21 release oxycodone 5 mg tablet 5 mg PO Q6H PRN #30 tab 03/13/21 losartan 100 mg tablet 100 mg PO QAM #90 tab 03/16/21 sodium sul 1.479 gram-potas ch See Rx Instructions PO .COMPLEX 04/03/21 0.188 gram-magnes sul 0.225 gram #24 tab tablet (Sutab) oxycodone-acetaminophen 5 mg-325 1 tab PO Q6H PRN #30 tab 04/04/21 mg tablet (Percocet) rosuvastatin 40 mg tablet 40 mg PO DAILY #90 tab 04/05/21 Results & Data (ED) Vital Signs Vital Signs - 24 hr 04/27/21 14:17 04/27/21 19:11 04/27/21 21:11 Temperature 36.7 C 37.6 C H 36.6 C Temperature Source Temporal Artery Scan Oral Temporal Artery Scan Pulse Rate 85 Pulse Rate [Apical] 104 H Pulse Rate [Left Finger] 88 Pulse Rhythm [Apical] Regular Pulse Rhythm [Left Finger] Regular Pulse Strength [Apical] Normal Pulse Strength [Left Finger] Normal Respiratory Rate 20 25 H 16 Respiratory Effort / Characteristics Non-Labored Spontaneous Non-Labored Spontaneous Respiratory Depth Normal Normal Respiratory Pattern Regular Blood Pressure 149/97 H Blood Pressure [Right Arm] 129/68 129/73 Blood Pressure Mean 114 Blood Pressure Mean [Right Arm] 88 91 Blood Pressure Position [Right Arm] Semi-fowlers Semi-fowlers Pulse Oximetry 95 92 96 Oxygen Delivery Method Room Air Oxymask Oxygen Flow Rate 5 Sepsis Recent Fever Within 48 Hours No Sepsis New/Unexplained Change in Mental Status No Sepsis Action Taken by Nursing No Action Required 04/27/21 21:20 Temperature 36.6 C Temperature Source Temporal Artery Scan Pulse Rate Pulse Rate [Apical] 97 H Pulse Rate [Left Finger] Pulse Rhythm [Apical] Regular Pulse Rhythm [Left Finger] Pulse Strength [Apical] Normal Pulse Strength [Left Finger] Respiratory Rate 18 Respiratory Effort / Characteristics Non-Labored Spontaneous Respiratory Depth Normal Respiratory Pattern Regular Blood Pressure Blood Pressure [Right Arm] 117/63 Blood Pressure Mean Blood Pressure Mean [Right Arm] 81 Blood Pressure Position [Right Arm] Semi-fowlers Pulse Oximetry 95 Oxygen Delivery Method Oxymask Oxygen Flow Rate 5 Sepsis Recent Fever Within 48 Hours Sepsis New/Unexplained Change in Mental Status Sepsis Action Taken by Nursing Laboratory Data Result diagrams: 04/27/21 16:30 04/27/21 16:30 Lab Results 04/27/21 04/27/21 04/27/21 Range/Units 16:30 16:30 16:30 WBC 13.20 H (4.8-10.8) K/uL RBC 4.63 L (4.7-6.1) M/uL Hgb 15.4 (14.0-18.0) g/dL Hct 46.5 (42-52) % MCV 100.4 H (80-100) fL MCH 33.3 (25-34) pg MCHC 33.1 (32-36) g/dL RDW Std Deviation 48.3 H (36.4-46.3) fL RDW Coeff of Danny 13.1 (11.5-14.5) % Plt Count 250 (130-400) K/uL MPV 8.9 (7.4-10.4) fL Immature Gran % (Auto) 0.4 % Neut % (Auto) 78.8 % Lymph % (Auto) 10.5 % [place] % (Auto) 8.7 % Eos % (Auto) 1.1 % Baso % (Auto) 0.5 % Neut # (Auto) 10.40 H (1.4-6.5) K/uL Lymph # (Auto) 1.39 (1.2-3.4) K/uL [place] # (Auto) 1.15 H (0.11-0.59) K/uL Eos # (Auto) 0.15 (0-0.5) K/uL Baso # (Auto) 0.06 (0-0.2) K/uL Immature Gran # (Auto) 0.05 H (0.00-0.02) K/uL ESR 62 H (0-20) mm/hr Sodium 135 L (136-145) mmol/L Potassium 4.1 (3.5-5.1) mmol/L Chloride 104 (98-107) mmol/L Carbon Dioxide 27 (21-32) mmol/L Anion Gap 4.0 (3-11) BUN 11 (7-18) mg/dl Creatinine 0.93 (0.6-1.4) mg/dl Est Cr Clr Drug Dosing Not Reportable Est GFR ( Amer) 110.6 ml/min Est GFR (Non-Af Amer) 95.4 ml/min BUN/Creatinine Ratio 12.0 (10-20) Glucose 92 (70-99) mg/dl Calcium 9.2 (8.5-10.1) mg/dl C-Reactive Protein 21.10 H (0-0.29) mg/dl Fluid Comment Synovial Source Synovial Color Synovial Appearance Synovial WBC (0-200) /ul Synovial RBC /uL Synovial Polynuclear % % Synovial Mononuclear % % COVID-19 Eval Order SARS-CoV-2 (PCR) (Negative) 04/27/21 04/27/21 04/27/21 Range/Units 16:30 18:30 18:30 WBC (4.8-10.8) K/uL RBC (4.7-6.1) M/uL Hgb (14.0-18.0) g/dL Hct (42-52) % MCV (80-100) fL MCH (25-34) pg MCHC (32-36) g/dL RDW Std Deviation (36.4-46.3) fL RDW Coeff of Danny (11.5-14.5) % Plt Count (130-400) K/uL MPV (7.4-10.4) fL Immature Gran % (Auto) % Neut % (Auto) % Lymph % (Auto) % [place] % (Auto) % Eos % (Auto) % Baso % (Auto) % Neut # (Auto) (1.4-6.5) K/uL Lymph # (Auto) (1.2-3.4) K/uL [place] # (Auto) (0.11-0.59) K/uL Eos # (Auto) (0-0.5) K/uL Baso # (Auto) (0-0.2) K/uL Immature Gran # (Auto) (0.00-0.02) K/uL ESR (0-20) mm/hr Sodium (136-145) mmol/L Potassium (3.5-5.1) mmol/L Chloride (98-107) mmol/L Carbon Dioxide (21-32) mmol/L Anion Gap (3-11) BUN (7-18) mg/dl Creatinine (0.6-1.4) mg/dl Est Cr Clr Drug Dosing Est GFR ( Amer) ml/min Est GFR (Non-Af Amer) ml/min BUN/Creatinine Ratio (10-20) Glucose (70-99) mg/dl Calcium (8.5-10.1) mg/dl C-Reactive Protein (0-0.29) mg/dl Fluid Comment Synovial Source KNEE Synovial Color RED Synovial Appearance CLOUDY Synovial WBC 77571 H (0-200) /ul Synovial RBC 69000 /uL Synovial Polynuclear % 90.8 % Synovial Mononuclear % 9.2 % COVID-19 Eval Order Covid19 at [facility] SARS-CoV-2 (PCR) NEGATIVE (Negative) Administered Medications Discontinued Medications Bupivacaine HCl (Bupivacaine 0.25% 30 Ml Vial) Confirm Administered Dose 30 ml .ROUTE .[employer] ONE Stop: 04/27/21 19:36 Last Admin: 04/27/21 20:55 Dose: 30 ml Documented by: [id number] Epinephrine HCl (Epinephrine Inj 1 Mg/Ml Amp) Confirm Administered Dose 1 mg .ROUTE .STK-MED ONE Stop: 04/27/21 19:35 Last Admin: 04/27/21 20:55 Dose: 0.15 mg Documented by: [id number] Fentanyl Citrate (Fentanyl Citrate 100 Mcg/2 Ml Vial) Confirm Administered Dose 200 mcg .ROUTE .STK-MED ONE Stop: 04/27/21 21:27 Last Increment: 04/27/21 21:49 Dose: 50 mcg Documented by: [id number] Increment: 04/27/21 21:37 Dose: 50 mcg Documented by: [id number] Increment: 04/27/21 21:29 Dose: 50 mcg Documented by: [id number] Vancomycin HCl (Vancomycin Hcl) 1,000 mg in 270 mls @ 200 mls/hr IV ONCE ONE; Protocol Stop: 04/27/21 21:45 Last Admin: 04/27/21 20:05 Dose: 200 mls/hr Documented by: [id number] Lidocaine HCl (Xylocaine 1%/Sod Bicarb 20 Ml Vial) 20 ml INFIL NOW ONE Stop: 04/27/21 16:06 Last Admin: 04/27/21 16:27 Dose: 20 ml Documented by: [id number] Sodium Hypochlorite (Dakin's Soln 0.125% Quarter Strength 1000 Ml Btl) 1 appln EXT ONCE ONE Stop: 04/27/21 20:38 Last Admin: 04/27/21 20:27 Dose: 1 appln Documented by: [id number] Imaging Data Radiologist's Impression: Knee X-Ray 04/27/21 16:07 XR knee RT 3V HISTORY: 50 years-old Male swelling acute pain and swelling of the right knee COMPARISON: 02/26/2021 TECHNIQUE: 3 views of the right knee FINDINGS: Total joint arthroplasty and patella resurfacing. Large joint effusion with moderate circumferential soft tissue swelling, most pronounced anteriorly. No acute fracture, dislocation, opaque foreign body or osseous erosion. IMPRESSION: 1. Total joint arthroplasty and patella resurfacing. No acute fracture. 2. Large joint effusion with moderate soft tissue swelling. ACT 112: Negative or not required by law. The above report was generated using voice recognition software. It may contain grammatical, syntax or spelling errors. Electronically signed by: Eliseo Ho M.D. 04/27/2021 4:23 PM Discharge Plan Visit Data Chief Complaint: Knee Injury/Pain Stated Complaint: REF BY ,WORRIED ABOUT INFECTION IN RIGHT KNEE ED Provider: Haroon Munoz Discharge Problem: Pain and swelling of right knee Patient Disposition: Still a Patient Discharge Instructions Interventions: ED Discharge Assessment Last Done: 04/27/21 19:00
[2021-04-27 16:59] LABS: Basophils # (auto) 0.06 K/uL (0-0.2); Basophils % (auto) 0.5 %; Eosinophils # (auto) 0.15 K/uL (0-0.5); Eosinophils % (auto) 1.1 %; Hematocrit (blood only) 46.5 % (42-52); Hemoglobin 15.4 g/dL (14.0-18.0); Immature Granulocytes # (auto) 0.05 K/uL (0.00-0.02); Immature Granulocytes % (auto) 0.4 %; Lymphocytes # (auto) 1.39 K/uL (1.2-3.4); Lymphocytes % (auto) 10.5 %; Mean Corpuscular Hemoglobin 33.3 pg (25-34); Mean Corpuscular Hgb Conc 33.1 g/dL (32-36); Mean Corpuscular Volume 100.4 fL (80-100); Mean Platelet Volume 8.9 fL (7.4-10.4); Monocytes # (auto) 1.15 K/uL (0.11-0.59); Monocytes % (auto) 8.7 %; Neutrophils % (auto) 78.8 %; Platelet Count 250 K/uL (130-400); RDW Coefficient of Variation 13.1 % (11.5-14.5); RDW Standard Deviation 48.3 fL (36.4-46.3); Red Blood Count 4.63 M/uL (4.7-6.1)
[2021-04-27 17:16] LABS: Blood Urea Nitrogen 11 mg/dl (7-18); Calcium 9.2 mg/dl (8.5-10.1); Carbon Dioxide 27 mmol/L (21-32); Chloride 104 mmol/L (98-107); Est GFR (African American) 110.6 ml/min; Est GFR (Non-African American) 95.4 ml/min; Glucose 92 mg/dl (70-99); Potassium 4.1 mmol/L (3.5-5.1); Sodium 135 mmol/L (136-145)
[2021-04-27 17:58] LABS: Appearance Synovial Fluid CLOUDY; Color Synovial Fluid RED; Mononuclear WBC Synovial 9.2 %; Polynuclear WBC Synovial 90.8 %; RBC Synovial Fluid (A) 84000 /uL; Source Synovial Fluid KNEE; WBC Synovial Fluid (A) 26068 /ul (0-200)
[2021-04-27] MEDS ORDERED: DAKIN'S SOLN 0.25% HALF STRENGTH 473ML BTL EXT ONE (18:18)
[2021-04-27] MEDS ORDERED: MIDAZOLAM HCL 1 MG/ML 2ML VIAL ONE (18:59)
[2021-04-27] MEDS ORDERED: fentaNYL citrate 100 MCG/2 ML VIAL ONE ×4 (18:59→21:26)
--- NOTE | 2021-04-27 19:11 | History & Physical Report ---
Date of Service April 27, 2021 Assessment & Plan (1) Infection of total knee replacement: We had a discussion at bedside. I recommended an urgent irrigation debridement with polyexchange of the right knee. We discussed the risk, benefits, and alternatives to procedure and he elected to proceed. Questions were answered at bedside. Consent was signed. Time was spent scribed procedure and postop expectations. The decision was made for surgery. After the procedure he will be admitted to the orthopedic service and kept on IV antibiotics. History of Present Illness Chief Complaint: Infected right knee replacement. Primary Care Provider: José Luis Ramirez MD Marcus is a pleasant 50-year-old male who underwent bilateral total knee arthroplasties 2 months ago. He did great for the first 2 months. He was having no pain in his knees. He was back to full activities. Unfortunately he began having a fever yesterday. His fever was 101 degrees. His fever broke today but then he said his knee began to swell and become very painful. He had trouble ambulating. He called our office and I told him to go to the emergency room immediately. I saw him in the emergency room and aspirated his knee. We obtained blood work which showed an elevated white blood cell count, and elevated sed rate, and an elevated CRP. The knee aspiration showed concerns for infection as well. After discussions at bedside, he elected to proceed with an urgent irrigation debridement of the right knee with polyethylene exchange. We will admit him to the orthopedic service.. Allergies Allergy/AdvReac Type Severity Reaction Status Date / Time No Known Drug Allergies Allergy Unknown Unknown Verified 04/27/21 14:56 Home Medications Medication Instructions Recorded Confirmed Type albuterol sulfate 90 mcg/actuation 2 puffs INH Q6H PRN 02/20/19 04/27/21 History aerosol inhaler (Proventil HFA) metoprolol tartrate 25 mg tablet 25 mg PO Q12H #180 tab 02/07/21 04/27/21 Rx allopurinol 100 mg tablet 100 mg PO QAM 02/26/21 04/27/21 History (Zyloprim) meloxicam 15 mg tablet (Mobic) 15 mg PO QAM #30 tab 03/02/21 04/27/21 Rx omeprazole 20 mg capsule,delayed 20 mg PO QPM #30 cap 03/02/21 04/27/21 Rx release oxycodone 5 mg tablet 5 mg PO Q6H PRN #30 tab 03/13/21 04/27/21 Rx losartan 100 mg tablet 100 mg PO QAM #90 tab 03/16/21 04/27/21 Rx sodium sul 1.479 gram-potas ch See Rx Instructions PO .COMPLEX 04/03/21 04/27/21 Rx 0.188 gram-magnes sul 0.225 gram #24 tab tablet (Sutab) oxycodone-acetaminophen 5 mg-325 1 tab PO Q6H PRN #30 tab 04/04/21 04/27/21 Rx mg tablet (Percocet) rosuvastatin 40 mg tablet 40 mg PO DAILY #90 tab 04/05/21 04/27/21 Rx Past Med/Surg History Medical History Current use of aspirin per pt is taking 81mg of aspirin bid per Dr. Singh for DVT prophylaxis after bilt tka Dyspnea on exertion GERD (gastroesophageal reflux disease) controlled Hyperlipidemia Hypertension Morbid obesity BMI 43.5 Obstructive sleep apnea count not tolerate CPAP Refusal of blood transfusions as patient is Tenriism Tobacco abuse Surgical History H/O: vasectomy History of tooth extraction WTE S/P knee replacement bilateral knee 02/26/2021 Family History Family/Other Myocardial infarction Grandfather Lung disease Hypertension Mother Kidney stones Gallbladder disease Uncle Alcohol abuse Stroke Other No family history of adverse response to anesthesia Denies family history of Ovarian cancer Prostate cancer Breast cancer Colorectal cancer Social History Smoking Status: Current every day smoker Tobacco Type: Cigarettes packs per day: 1; Cigarettes Per Day: 15 cigs/day (tobacco use x 30 years); Second Hand Exposure: Yes; Hx Alcohol Use: Yes Alcohol type: beer and hard liquor Alcohol Intake Frequency Comment: Pt reported drinking one 30 pack weekly and one 2.75 liter bottle of david Hx Substance Use: No Preferred Language: Bol[place]ian Communication Ability: Effective 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 Physical Exam On physical examination of the right knee, there is a large effusion. There is a little bit of redness but not much. He is able to ambulate but he has an antalgic gait. He has decreased range of motion of his knee.. Constitutional WD/WN, vitals as above Eyes PERRL, conjunctivae normal, anicteric sclerae ENMT external ear and nose normal, oropharynx normal Neck trachea midline, no thyromegaly Respiratory normal respiratory effort Cardiovascular RRR, no murmur, no edema Gastrointestinal (Abdomen) normal bowel sounds, soft, nontender, no hepatosplenomegaly Psychiatric A+Ox3, euthymic affect Results & Data Results & Data Diagnostic Findings X-rays of the right knee were negative. They show a well-placed right knee replacement without any signs of loosening or complications.. PG Care Time/CCT Total # of Minutes Spent Total Time Spent with Patient: Total time spent is greater than 50% in coordination of care (as documented) at patient's floor/unit and/or counseling patient: Coding Level of Care Code 06901 Initial Inpt Care Lvl 2 (57 - DECISION FOR SURGERY) Diagnoses Infection of total knee replacement T84.59XA; Z96.659
[2021-04-27] MEDS ORDERED: EPINEPHrine INJ 1 MG/ML AMP ONE (19:34)
[2021-04-27] MEDS ORDERED: BUPIVACAINE 0.25% 30 ML VIAL ONE (19:35)
[2021-04-27] MEDS ORDERED: LIDOCAINE 2% 2 ML VIAL/AMP(20MG/ML) INFIL ONE (19:42)
[2021-04-27] MEDS ORDERED: PROPOFOL IV EMULSION 10 MG/ML 20 ML VIAL IV ONE (19:42)
[2021-04-27] MEDS ORDERED: SUCCINYLCHOLINE CHLORIDE 20 MG/ML 10 ML VIAL IV ONE (19:42)
[2021-04-27] MEDS ORDERED: VANCOMYCIN HCL 1000MG/20ML VIAL ONE (19:53)
[2021-04-27] MEDS ORDERED: ONDANSETRON INJ 2 MG/ML 2 ML VIAL ONE (20:00)
[2021-04-27] MEDS ORDERED: VANCOMYCIN HCL 1,000 MG/270 ML BAG IV ONE (20:25)
[2021-04-27] MEDS ORDERED: DAKIN'S SOLN 0.125% QUARTER STRENGTH 1000 ML BTL EXT ONE (20:37)
[2021-04-27] MEDS ORDERED: ePHEDrine sulfate 50 MG/ML AMP IV PRN (21:27)
[2021-04-27] MEDS ORDERED: ONDANSETRON INJ 2 MG/ML 2 ML VIAL IV PRN ×2 (21:27→22:29)
[2021-04-27] MEDS ORDERED: HYDROmorphone INJ 2 MG/ML SYR/VIAL IV PRN (21:27)
[2021-04-27] MEDS ORDERED: ATROPINE SULFATE 0.1 MG/ML 10ML SYR IV PRN (21:27)
[2021-04-27] MEDS ORDERED: fentaNYL citrate 100 MCG/2 ML VIAL IV PRN (21:27)
[2021-04-27] MEDS ORDERED: PROMETHAZINE HCL 6.25 MG in SODIUM CHLORIDE 0.9% 50 ML IV PRN (21:27)
--- NOTE | 2021-04-27 21:27 | Anesthesiology Consultation ---
Date of Service April 27, 2021 Assessment & Plan Chart Review Chart Review: Acceptable Risk for Surgery and Patient NOT seen in Pre Admission Testing Consults Requested none ASA [id number] Proposed Anesthesia Anesthesia Type: General (+rsi) Risk / Benefits Reviewed With: PT / POA / Parent / Guardian, Accepts Plan and Informed Consent Obtained History Surgery Operation Date: 04/27/21 20:00 Proposed Procedures p Poly Exchange - Kodi Singh, DO Height/Weight Weight: 132.9 kg Allergies Allergy/AdvReac Type Severity Reaction Status Date / Time No Known Drug Allergies Allergy Unknown Unknown Verified 04/27/21 14:56 Medications Home Medications Medication Instructions Recorded Confirmed Last Taken albuterol sulfate 90 mcg/actuation 2 puffs INH Q6H PRN 02/20/19 04/27/21 Unknown aerosol inhaler (Proventil HFA) metoprolol tartrate 25 mg tablet 25 mg PO Q12H #180 tab 02/07/21 04/27/21 04/08/21 09:00 allopurinol 100 mg tablet 100 mg PO QAM 02/26/21 04/27/21 04/08/21 09:00 (Zyloprim) meloxicam 15 mg tablet (Mobic) 15 mg PO QAM #30 tab 03/02/21 04/27/21 04/08/21 09:00 omeprazole 20 mg capsule,delayed 20 mg PO QPM #30 cap 03/02/21 04/27/21 04/08/21 09:00 release oxycodone 5 mg tablet 5 mg PO Q6H PRN #30 tab 03/13/21 04/27/21 04/02/21 losartan 100 mg tablet 100 mg PO QAM #90 tab 03/16/21 04/27/21 04/08/21 09:00 sodium sul 1.479 gram-potas ch See Rx Instructions PO .COMPLEX 04/03/21 04/27/21 04/09/21 05:00 0.188 gram-magnes sul 0.225 gram #24 tab tablet (Sutab) oxycodone-acetaminophen 5 mg-325 1 tab PO Q6H PRN #30 tab 04/04/21 04/27/21 04/07/21 mg tablet (Percocet) rosuvastatin 40 mg tablet 40 mg PO DAILY #90 tab 04/05/21 04/27/21 Unknown Active Medications Generic Name Dose Route Start Last Admin Trade Name Samantha PRN Reason Stop Dose Admin Vancomycin HCl 1,000 mg in 270 mls @ 200 mls/hr 04/27/21 20:25 04/27/21 20:05 Vancomycin Hcl IV 04/27/21 21:45 200 mls/hr ONCE ONE Administration Protocol NPO Date Last Intake of Fluids: 04/27/21 Time Last Intake of Fluids: 13:30 Date Last Intake of Solids: 04/26/21 Time Last Intake of Solids: 18:00 Past Medical History Medical History Current use of aspirin per pt is taking 81mg of aspirin bid per Dr. Singh for DVT prophylaxis after bilt tka Dyspnea on exertion GERD (gastroesophageal reflux disease) controlled Hyperlipidemia Hypertension Morbid obesity BMI 43.5 Obstructive sleep apnea count not tolerate CPAP Refusal of blood transfusions as patient is Hindu Tobacco abuse Exercise / Class Metabolic Activity II 4-5 Yardwork/Stairs/Walk up hill Past Family History Family History Family/Other Myocardial infarction Grandfather Lung disease Hypertension Mother Kidney stones Gallbladder disease Uncle Alcohol abuse Stroke Other No family history of adverse response to anesthesia Denies family history of Ovarian cancer Prostate cancer Breast cancer Colorectal cancer Past Surgical History Surgical History H/O: vasectomy History of tooth extraction WTE S/P knee replacement bilateral knee 02/26/2021 Past Anesthesia History No Hx of Anesthesia Complications and No Family Hx of Anesthesia Complications History of PONV No Hx of PONV and No Hx of Motion Sickness Social History Smoking Status: Current every day smoker tobacco type: cigarettes Smoking cigarettes per day: 15 cigs/day (tobacco use x 30 years) Hx Alcohol Use: Yes Alcohol type: beer and hard liquor alcohol intake frequency: 3 or more drinks per day Hx Substance Use: No substance use type: does not use Physical Exam Vital Signs Last Vital Signs Temp 37.6 C H 04/27/21 19:11 Pulse 88 04/27/21 19:11 Resp 25 H 04/27/21 19:11 BP 129/68 04/27/21 19:11 Pulse Ox 92 04/27/21 19:11 Constitutional + morbidly obese ENMT Mouth: no dentition abnormality Thyromental Distance: > or= 3.5 Finger Breadths Mallampati Class: II Neck normal visual inspection Respiratory normal respiratory effort Auscultation: lungs clear to auscultation bilaterally Cardiovascular Rate/Rhythm: regular rate and regular rhythm Psychiatric Orientation: alert Testing Laboratory Results 04/27/21 16:30 04/27/21 16:30 04/27/21 20:04 Gram Stain - Final Knee,Right 04/27/21 20:04 Gram Stain - Final Knee,Right 04/27/21 16:30 Gram Stain - Final Knee,Right
--- NOTE | 2021-04-27 21:30 | Operative Report ---
PG Post Operative Report Pre & Post Diagnosis Operation Date: 04/27/21 20:00 Pre-Op Diagnosis: Paraprosthetic infection of right knee Post-Op Diagnosis: Paraprosthetic infection of right knee I identified the patient and participated in the time-out.: Yes Procedure Operation Date: 04/27/21 20:00 Actual Procedures p Right Knee Irrigation and Debridement and Poly Exchange(Right) - Kodi Singh DO Surgeon Kodi Singh DO Extrusion Die Repair Manager None Estimated Blood Loss 10 Findings Consistent with Post-Op Diagnosis Specimens 5 tissue cultures and a swab culture Drains Hemovac drain Complications none Disposition Disposition: Recovery Room Indications Marcus is a 50-year-old male who is 8 weeks status post bilateral knee replacements. He has been doing extremely well. I just saw him at the 6-week follow-up appointment and he was having no pain in his knees. He was very happy. He did have a colonoscopy done 3 weeks ago. He was doing fine until yesterday he had a fever. Today he noticed severe swelling and pain of his right knee. He called the office and we told him to go immediately to emergency room. We obtained blood work and a knee aspiration in the emergency room and s ent him directly to the operating room for irrigation and debridement of a right periprosthetic knee infection. Description of Procedure On April 27 2021 Marcus was brought from the emergency room to the preoperative holding area. The operative extremity was then fine signed. He was taken back the operating room and laid on the table in supine position. He was put under general anesthesia. The right knee was then prepped and draped in sterile fashion. A timeout was done. The patient and the operative extremity was properly identified. The previous longitudinal incision was opened back up. Dissection was taken down to the extensor mechanism. The subvastus arthrotomy was once again opened. There was a large amount of purulent discharge. A swab culture was obtained. 5 soft tissue cultures were obtained. The knee was then irrigated. The polyethylene insert was then removed. Significant time was spent doing a meticulous debridement of the medial and lateral gutters as well as the undersurface of the extensor mechanism and the posterior capsule. Once a thorough debridement had been done the knee was irrigated with 3 L normal saline solution with pulse lavage. A 3-minute Dakin solution lavage was then done. The components were then scrubbed with a Betadine scrub brush. The knee was once again irrigated with 3 L of normal saline solution. A 3-minute dilute Betadine lavage was then done. The complements were then scrubbed again with a Betadine scrub brush. The knee was irrigated with another 3 L of normal saline solution. All gloves were changed. New drapes were placed. A new Bovie tip and new suction was used. A new pulse lavage was used. The dirty table was removed and the clean table was brought into the sterile field. The size 10 polyethylene insert was snapped into place. The knee was brought through a full range of motion and felt to be stable. The tourniquet was deflated. The knee was once again irrigated. 2 Hemovac drains were placed. The extensor mechanism was closed with #1 Vicryl. Skin was closed with 2-0 Vicryl, 3 oh VueLock suture, and steve. He was then placed in a soft compressive dressing. He was then extubated and transferred to a hospital bed. He was taken to the post anesthesia care unit in stable condition. He tolerated the procedure well. I attest to the content of the Intraoperative Record and any orders documented therein. Any exceptions are noted below.
[2021-04-27] MEDS ORDERED: oxyCODONE/ACETAMINOPHEN 5mg/325mg TAB PO PRN (22:29)
[2021-04-27] MEDS ORDERED: ALBUTEROL HFA 8 GM INHALER INH PRN (22:29)
[2021-04-27] MEDS ORDERED: KETOROLAC 30 MG/ML VIAL IV PRN (22:29)
[2021-04-27] MEDS ORDERED: HYDROmorphone INJ 0.5 MG/0.5 ML SYR IV PRN (22:29)
[2021-04-27] MEDS ORDERED: VANCOMYCIN CONSULT ACTIVE PRN (22:29)
[2021-04-27] MEDS ORDERED: VANCOMYCIN HCL 1,750 MG in SODIUM CHLORIDE 0.9% 500 ML IV ONE (22:45)
[2021-04-27] MEDS ORDERED: PATIENT'S HEIGHT AND/OR WEIGHT NEEDED SCH (22:45)
[2021-04-27] MEDS: SODIUM CHLORIDE 0.9% 1000ML 1,000 ML IV SCH (23:20)
[2021-04-27] MEDS: METOPROLOL TARTRATE 25 MG TAB PO SCH (23:20)
--- NOTE | 2021-04-27 23:58 | Pharmacy Report ---
Pharmacy Vanc AUC Short Note - Date of Service April 27, 2021 - Assessment & Plan Assessment 50 year old M receiving vancomycin for treatment of total knee replacement infection. OR cultures from Right knee are pending Day #1 of antimicrobial therapy. Plan Vancomycin * AUC/ED is the preferred PK/PD target for vancomycin * AUC guided dosing is effective and associated with decreased risk of nephrotoxicity compared to traditional trough targets * Loading dose total of 2750 mg (1000 mg in OR + additional 1750 mg when patient reached floor) * Will begin maintenance dose of 1250 mg q12H this is predicted to achieve an AUC/ED between 400-600 mg/L.hr (524) and may be associated with a 9% risk of nephrotoxicity- may need close monitoring as patient is at risk for accumulation * Trough will be ordered if vanc continued > 48 hours pending culture results. Pharmacy will continue to follow and will adjust dose/frequency as necessary. Thank you.
--- NOTE | 2021-04-28 00:03 | Anesthesiology Progress Note ---
Date of Service April 28, 2021 Anesthesia Post Procedure Vital Signs Vital Signs: Temp Pulse Pulse Pulse Resp BP BP 04/27/21 23:27 37.0 C 79 18 114/68 04/27/21 22:58 36.5 C 84 18 111/66 04/27/21 22:32 36.9 C 80 20 04/27/21 22:25 36.9 C 83 18 114/77 04/27/21 22:10 37.3 C 86 16 04/27/21 22:00 37.3 C 82 16 04/27/21 21:50 87 16 04/27/21 21:40 91 H 16 04/27/21 21:30 36.6 C 90 18 04/27/21 21:20 36.6 C 97 H 18 04/27/21 21:11 36.6 C 104 H 16 04/27/21 19:11 37.6 C H 88 25 H 04/27/21 14:17 36.7 C 85 20 149/97 H BP Pulse Ox 04/27/21 23:27 98 04/27/21 22:58 95 04/27/21 22:32 114/77 98 04/27/21 22:25 96 04/27/21 22:10 113/75 98 04/27/21 22:00 118/76 96 04/27/21 21:50 120/78 91 04/27/21 21:40 115/72 95 04/27/21 21:30 141/72 H 93 04/27/21 21:20 117/63 95 04/27/21 21:11 129/73 96 04/27/21 19:11 129/68 92 04/27/21 14:17 95 Pain Intensity Right Knee: Pain Intensity: 4 Transfer of Care Handoff Completed per policy Notes Mental Status: alert / awake / arousable Patient Amnestic to Procedure: Yes Nausea / Vomiting: adequately controlled Pain: adequately controlled Airway Patency, RR, SpO2: stable & adequate BP & HR: stable & adequate Hydration State: stable & adequate Anesthetic Complications: no major complications apparent
[2021-04-28] MEDS: oxyCODONE/ACETAMINOPHEN 5mg/325mg TAB PO PRN ×3 (01:07→15:34)
[2021-04-28] MEDS: SODIUM CHLORIDE 0.9% 1000ML 1,000 ML IV SCH ×2 (06:45→08:18)
[2021-04-28] MEDS: LOSARTAN POTASSIUM 50 MG TAB PO SCH (08:19)
[2021-04-28] MEDS: allopurinoL 100 MG TAB PO SCH (08:19)
[2021-04-28] MEDS: ROSUVASTATIN CALCIUM 20 MG TAB PO SCH (08:20)
[2021-04-28] MEDS: MELOXICAM 7.5 MG TAB PO SCH (08:20)
[2021-04-28] MEDS: ASPIRIN 81 MG ECTAB PO SCH ×2 (08:20→21:29)
--- NOTE | 2021-04-28 08:46 | Orthopedic Progress Note ---
Date of Service April 28, 2021 Assessment & Plan (1) Infection of total knee replacement: At this point is doing well as well as expected. We are currently waiting culture results. The Hemovac is in place. I plan to remove the Hemovac drains on Friday. We will keep him on vancomycin for now. The hospitalist has been consulted to help with IV antibiotic management. He will likely need a PICC line placed. I do not feel that blood cultures are necessary. Bradley Velazquez was seen and examined at bedside this morning. Overall is doing fairly well. He is having some soreness and pain in his knee. He has been up and ambulating into the hallways. He has no new complaints.. Review of Systems All systems reviewed & are unremarkable except as noted in HPI & below. Physical Exam On physical examination of the right knee, the drain is to suction. His leg is out full extension. He has active dorsiflexion plantarflexion of his right ankle. Sensation is intact throughout.. Results & Data Results & Data Laboratory Results Culture results from the tissue cultures and cotton swabs of the knee replacement are still pending. Diagnostic Findings . PG Care Time/CCT Total # of Minutes Spent Total Time Spent with Patient: Total time spent is greater than 50% in coordination of care (as documented) at patient's floor/unit and/or counseling patient: Coding Level of Care Code 13814 Post Operative Follow-Up Diagnoses Infection of total knee replacement T84.59XA; Z96.659
[2021-04-28] MEDS ORDERED: LORazepam 1 MG/2 ML VIAL IV PRN (09:44)
[2021-04-28] MEDS ORDERED: MULTI-VITAMIN INFUSION 10 ML, THIAMINE HCL 100 MG, FOLIC ACID 1 MG in SODIUM CHLORIDE 0... IV ONE (10:15)
[2021-04-28] MEDS: NICOTINE 14 MG/24 HR PATCH TD SCH (11:00)
--- NOTE | 2021-04-28 11:27 | Hospitalist Consultation ---
Date of Consultation April 28, 2021 Assessment & Plan (1) Infection of total knee replacement: - S/P R irrigation/debridement with polyexchange on 27 April - Awaiting joint cultures - Continue Vancomycin as empiric coverage to better determine Abx coverage - likely just need strept/staph coverage; patient reports no know H/O MRSA; not a diabetic or on immunosuppressive therapy - DVT prophylaxis - ASA BID; pain regimen, PT/OT, bowel regimen, surgical management per primary (2) Alcohol abuse: - No signs of withdrawal at this time; Pt has never sustained from alcohol for long periods of time - AWSS protocol with PRN Ativan IV; as patient is not looking to quit at this time could consider ordering beer/liquor from pharmacy to prevent withdrawal - Banana bag x 1; continue thiamine/folate daily (3) Hypertension: - STABLE - Continue Losartan 100 mg AM and Lopressor 25 mg BID (4) Hyperlipidemia: - Continue Rosuvastatin 40 mg daily (5) Tobacco abuse: - Nicotine patch; pt is considering quitting Disposition: - Await cultures to assess Abx options; if needed will need PICC line placement prior to D/C - Hospitalists will continue to follow Supervising Physician Co-Signing Physician Notes Patient seen and examined with Norma Hines PA-C. I agree with her exam findings, review of systems, assessment and plan. I personally reviewed the lab work and imaging as well. patient presents with infection of right TKA, s/p washout will plan for ID consult to better guide IV antibiotic therapy (which drug, how long etc) pain is controlled, eating well, breathing is stable, no chest pain, no fever will continue to follow allong with ortho History of Present Illness Reason for Consultation: Medical Management; Antibiotic Regimen Attending Physician: Kodi Singh DO History of Present Illness Mr. Turcios is a 50 y/o male with PMHx of HTN, HLD, FADI, GERD, and Alcohol Abuse who had a bilateral knee replacement approx. 2 months ago now S/P washout of the R knee on 27 April. Pt reports he was making good progress in regards to his knees. He reports development of a fever a couple days ago and then developed swelling and pain in the R knee. Joint was aspirated and cultures obtained prior to Abx initiation. He underwent R knee irrigation and debridement with polyexhange. He reports doing well today but still soreness in the R knee especially with ambulating. He is currently wearing supplemental O2 which he does not use at baseline. He reports no recent issues with chest pain. Has chronic SOB with exertion. Has FADI but cannot tolerate CPAP/BiPAP. He does admit to smoking approx 3/4 pack of cigarettes a day and 6 beers/6 shots a day. He has not gone extensive periods of time without alcohol and is unsure if he would have withdrawal symptoms. Currently no signs of active withdrawal at this time. Allergies Allergy/AdvReac Type Severity Reaction Status Date / Time No Known Drug Allergies Allergy Unknown Unknown Verified 04/27/21 14:56 Home Medications Medication Instructions Recorded Confirmed Type albuterol sulfate 90 mcg/actuation 2 puffs INH Q6H PRN 02/20/19 04/27/21 History aerosol inhaler (Proventil HFA) metoprolol tartrate 25 mg tablet 25 mg PO Q12H #180 tab 02/07/21 04/27/21 Rx allopurinol 100 mg tablet 100 mg PO QAM 02/26/21 04/27/21 History (Zyloprim) meloxicam 15 mg tablet (Mobic) 15 mg PO QAM #30 tab 03/02/21 04/27/21 Rx omeprazole 20 mg capsule,delayed 20 mg PO QPM #30 cap 03/02/21 04/27/21 Rx release oxycodone 5 mg tablet 5 mg PO Q6H PRN #30 tab 03/13/21 04/27/21 Rx losartan 100 mg tablet 100 mg PO QAM #90 tab 03/16/21 04/27/21 Rx sodium sul 1.479 gram-potas ch See Rx Instructions PO .COMPLEX 04/03/21 04/27/21 Rx 0.188 gram-magnes sul 0.225 gram #24 tab tablet (Sutab) rosuvastatin 40 mg tablet 40 mg PO DAILY #90 tab 04/05/21 04/27/21 Rx aspirin 81 mg tablet,delayed 81 mg PO BID 42 Days #84 tab 04/30/21 Rx release oxycodone-acetaminophen 5 mg-325 1 tab PO Q6H PRN #40 tab 04/30/21 Rx mg tablet (Percocet) cefazolin 1 gram intravenous 2 g IV Q8H #25 ea 05/01/21 Rx solution rifampin 300 mg capsule 300 mg PO Q12H 35 Days #70 cap 05/01/21 Rx Patient History Medical History Current use of aspirin per pt is taking 81mg of aspirin bid per Dr. Singh for DVT prophylaxis after bilt tka Dyspnea on exertion GERD (gastroesophageal reflux disease) controlled Hyperlipidemia Hypertension Morbid obesity BMI 43.5 Obstructive sleep apnea count not tolerate CPAP Refusal of blood transfusions as patient is Shinto Tobacco abuse Surgical History H/O: vasectomy History of tooth extraction WTE S/P knee replacement bilateral knee 02/26/2021 Family History Family/Other Myocardial infarction Grandfather Lung disease Hypertension Mother Kidney stones Gallbladder disease Uncle Alcohol abuse Stroke Other No family history of adverse response to anesthesia Denies family history of Ovarian cancer Prostate cancer Breast cancer Colorectal cancer Social History Smoking Status: Current every day smoker Tobacco Type: Cigarettes packs per day: 1; Cigarettes Per Day: 10; Second Hand Exposure: No; Hx Alcohol Use: Yes Alcohol type: beer and hard liquor Alcohol Intake Frequency Comment: Pt reported drinking one 30 pack weekly and one 2.75 liter bottle of david Hx Substance Use: No Preferred Language: Hebrew Communication Ability: Effective Hoist Operator Required: No Beliefs That Will Affect Care: Scientologist Scientologist Beliefs: Shinto Does not want to receive blood products marital status: Unknown Current Living Situation: Alone current occupational status: employed Feels Safe at Home: Yes Dental Care, Regularly: No Physical Activity Frequency: 5-6 Times per Week Seatbelt Use: always Assistive Devices: Walker Review of Systems Review of Systems: REVIEW OF SYSTEMS General/Constitutional: + tired; Denies fever/chills, weakness ENT: Denies visual changes, nasal drainage, hearing loss, sore throat, trouble swallowing Cardiovascular: Denies chest pain, palpitations, edema Respiratory: + SOB with exertion (chronic); Denies cough, sputum, wheezing, orthopnea GI: Denies nausea, vomiting, abdominal pain, constipation, diarrhea, melena/hematochezia : Denies dysuria Musculoskeletal: + R knee pain Neurologic: Denies dizziness/lightheadedness, numbness/tingling, weakness Psychiatric: + frequent/daily alcohol intake; Denies anxiety, restlessness Hematologic/Lymphatic: Denies bleeding/clotting abnormalities Skin: Denies rash Physical Exam Physical Exam: PHYSICAL EXAM General Appearance: WDWN in NAD who is A&O x 3 HEENT: Head is normocephalic/atraumatic; EOMI; PERRLA; Hearing grossly intact; Mucous membranes moist; Pharynx negative for exudate/lesions Neck: Supple; Trachea midline; Neg JVD; Neg lymphadenopathy Heart: RRR with no M/G/R Lungs: CTA in all lung cox bilaterally; Respirations unlabored; Neg accessory muscle use Abdomen: Soft, non-tender; Positive BS x 4 quadrants; Neg organomegaly Extremities: +R knee with TARSHA wrap in place and draing present (did not remove); Capillary refill < 2 seconds; Neg cyanosis or edema Neurological: Speech clear; Gross motor/sensory function intact; Neg focal neurologic deficits Psychiatric: Appropriate mood/affect Skin: Normal Color; Warm/Dry; Neg rashes, ecchymosis, lacerations/ulcerations Results & Data Results & Data ([facility]) Vital Signs (Past 12 Hours) Vital Signs Temp Pulse Resp BP Pulse Ox 04/28/21 07:08 36.6 C 72 16 108/70 93 04/28/21 05:24 36.6 C 82 18 103/65 96 04/28/21 01:39 36.7 C 83 18 111/70 96 04/28/21 00:31 36.7 C 77 18 100/60 98 04/27/21 23:27 37.0 C 79 18 114/68 98 PG Care Time/CCT Total # of Minutes Spent Total Time Spent with Patient: Total time spent is greater than 50% in coordination of care (as documented) at patient's floor/unit and/or counseling patient: Coding Level of Care Code 16692 Inpt Consult Level 3 Diagnoses Infection of total knee replacement T84.59XA; Z96.659 Alcohol abuse F10.10 Tobacco abuse Z72.0 Hypertension I10 Hyperlipidemia E78.5
[2021-04-28] MEDS: METOPROLOL TARTRATE 25 MG TAB PO SCH ×2 (11:31→21:30)
[2021-04-28] MEDS: VANCOMYCIN HCL 1,250 MG in SODIUM CHLORIDE 0.9% 250 ML IV SCH (11:36)
[2021-04-28] MEDS: PANTOprazole 40 MG TAB PO SCH (21:29)
[2021-04-29] MEDS: oxyCODONE/ACETAMINOPHEN 5mg/325mg TAB PO PRN ×5 (00:33→22:34)
[2021-04-29] MEDS: VANCOMYCIN HCL 1,250 MG in SODIUM CHLORIDE 0.9% 250 ML IV SCH ×2 (00:34→12:07)
--- NOTE | 2021-04-29 07:57 | Orthopedic Progress Note ---
Date of Service April 29, 2021 Assessment & Plan (1) Infection of total knee replacement: One of his first culture sensitivities has come back as MSSA. He is currently on vancomycin. He can be up and weightbearing as tolerated. He will likely need a PICC line for long-term IV antibiotic treatment. We will see how the cultures come back today. We will likely place a PICC line tomorrow and discuss discharge either later tomorrow or Friday. I plan to pull the Hemovac drains tomorrow. Subjective Marcus was seen and examined at bedside this morning. Overall is doing okay. He does not feel sick. His knee is hurting him a lot. He is able to weight- bear on it but is pretty sore. He is getting IV vancomycin. He has been seen by the hospitalist. We are awaiting final cultures. He has no new complaints.. Review of Systems All systems reviewed & are unremarkable except as noted in HPI & below. Physical Exam On physical examination of the right knee, the dressing is clean and dry. The drains are to suction. He has active dorsiflexion plantarflexion of his right ankle.. Results & Data Results & Data Laboratory Results Microbiology 04/27/21 16:30 Gram Stain - Final Knee,Right Aerobic and Anaerobic Culture - Preliminary Staphylococcus aureus 04/27/21 20:04 Gram Stain - Final Knee,Right Aerobic and Anaerobic Culture - Preliminary Gram positive cocci 04/27/21 20:04 Gram Stain - Final Knee,Right Aerobic and Anaerobic Culture - Preliminary Gram positive cocci . Diagnostic Findings . PG Care Time/CCT Total # of Minutes Spent Total Time Spent with Patient: Total time spent is greater than 50% in coordina tion of care (as documented) at patient's floor/unit and/or counseling patient: Coding Level of Care Code 10538 Post Operative Follow-Up Diagnoses Infection of total knee replacement T84.59XA; Z96.659
[2021-04-29] MEDS: FOLIC ACID 1 MG TAB PO SCH (08:50)
[2021-04-29] MEDS: allopurinoL 100 MG TAB PO SCH (08:50)
[2021-04-29] MEDS: ASPIRIN 81 MG ECTAB PO SCH ×2 (08:50→21:26)
[2021-04-29] MEDS: MELOXICAM 7.5 MG TAB PO SCH (08:50)
[2021-04-29] MEDS: LOSARTAN POTASSIUM 50 MG TAB PO SCH (08:50)
[2021-04-29] MEDS: THIAMINE HCL 100 MG TAB PO SCH (08:51)
[2021-04-29] MEDS: ROSUVASTATIN CALCIUM 20 MG TAB PO SCH (08:51)
[2021-04-29] MEDS: NICOTINE 14 MG/24 HR PATCH TD SCH (08:51)
--- NOTE | 2021-04-29 09:40 | Hospitalist Progress Note ---
Date of Service April 29, 2021 Assessment & Plan (1) Infection of total knee replacement: Plan: - S/P R irrigation/debridement with polyexchange on 27 April - So far joint cultures reveal - MSSA - Consult ID ([facility])- for Abx options/route/duration -- Literature supports beta-lactams (Cefazolin would be an option however dosed Q8H) but some support oral options can be just as beneficial but anticipate 4-6 weeks coverage - Can keep vancomycin currently until feed back from ID and cultures further develop - DVT prophylaxis - ASA BID; pain regimen, PT/OT, bowel regimen, surgical management per primary (2) Alcohol abuse: Plan: - No signs of withdrawal at this time; Pt has never sustained from alcohol for long periods of time - AWSS protocol with PRN Ativan IV; as patient is not looking to quit at this time could consider ordering beer/liquor from pharmacy to prevent withdrawal - Continue thiamine/folate daily (3) Hypertension: Plan: - STABLE - Continue Losartan 100 mg AM and Lopressor 25 mg BID (4) Hyperlipidemia: Plan: - Continue Rosuvastatin 40 mg daily (5) Obstructive sleep apnea: Plan: - Had sleep study in the past - cannot tolerate CPAP - Reports utilizing supplemental O2 at night seemed to help him feel more rested - could follow-up with PCP to see if this is an option however not the optimal treatment for FADI (6) Tobacco abuse: Plan: - Nicotine patch; pt is considering quitting Plan: Disposition: - Appreciate ID consultation - will need coordination with case management/IV infusion should IV Abx be recommended - ID consults do not occur over the weekend and are virtual currently - Hospitalist service will continue to follow Admission and Anticipated Discharge Date Admission Date: April 27, 2021 Subjective Reports feeling well overall. Continues to have R knee pain but states it is better than yesterday and pain regimen is working. Cx reveals MSSA. Pt has been weaned from supplemental O2 and vitals are stable. Review of Systems Review of Systems: REVIEW OF SYSTEMS General/Constitutional: Denies fever/chills, weakness ENT: Denies nasal drainage, sore throat Cardiovascular: Denies chest pain, palpitations, edema Respiratory: + SOB with exertion (chronic); Denies cough, sputum, wheezing, orthopnea GI: Denies nausea, vomiting, abdominal pain : Denies dysuria Musculoskeletal: + R knee pain (less compared to yesterday and responding to pain medication) Neurologic: Denies dizziness/lightheadedness, numbness/tingling, weakness Psychiatric: Denies anxiety, restlessness Physical Exam Physical Exam: PHYSICAL EXAM General Appearance: WDWN in NAD who is A&O x 3 HEENT: Head is normocephalic/atraumatic; Hearing grossly intact; Mucous membranes moist Neck: Supple; Trachea midline; Neg JVD Heart: RRR with no M/G/R Lungs: CTA in all lung cox bilaterally; Respirations unlabored; Neg accessory muscle use Abdomen: Soft, non-tender; Positive BS x 4 quadrants Extremities: +R knee with TARSHA wrap in place and drain present (did not remove); Capillary refill < 2 seconds; Neg cyanosis or edema Neurological: Speech clear; Gross motor/sensory function intact; Neg focal neurologic deficits Psychiatric: Appropriate mood/affect; no signs of alcohol withdrawal; no tremors Skin: Normal Color; Warm/Dry Results & Data Results & Data ([facility]) Vital Signs (Past 12 Hours) Vital Signs Temp Pulse Resp BP Pulse Ox 04/29/21 06:58 37.2 C 90 18 131/82 94 04/28/21 22:32 36.7 C 78 16 141/82 H 93 PG Care Time/CCT Total # of Minutes Spent Total Time Spent with Patient: Total time spent is greater than 50% in coordination of care (as documented) at patient's floor/unit and/or counseling patient: Coding Level of Care Code 26522 Inpt Consult Level 2 Diagnoses Infection of total knee replacement T84.59XA; Z96.659 Alcohol abuse F10.10 Hypertension I10 Hyperlipidemia E78.5 Tobacco abuse Z72.0 Obstructive sleep apnea G47.33
[2021-04-29] MEDS: METOPROLOL TARTRATE 25 MG TAB PO SCH ×2 (11:26→21:26)
[2021-04-29] MEDS ORDERED: VANCOMYCIN TROUGH ONE (11:30)
[2021-04-29 12:52] LABS: Creatinine Clr Calc Pharmacy 168.3 ml/min; Est GFR (African American) 126.8 ml/min; Est GFR (Non-African American) 109.4 ml/min
[2021-04-29] MEDS: PANTOprazole 40 MG TAB PO SCH (21:27)
[2021-04-29] MEDS: DAPTOmycin 575 MG in SYRINGE 0 ML IV SCH (21:27)
[2021-04-30] MEDS: oxyCODONE/ACETAMINOPHEN 5mg/325mg TAB PO PRN (04:24)
--- NOTE | 2021-04-30 06:32 | Orthopedic Progress Note ---
Date of Service April 30, 2021 Assessment & Plan (1) Infection of total knee replacement: We are still waiting for the final cultures and sensitivities to come back. Right now he is on daptomycin. Infectious disease consult has been placed for today. He can be up and ambulating with the nursing staff. The dressing has been changed and the drain has been pulled. A PICC line consent was done. A PICC line can be placed today. If everything happens today in a timely fashion and there is a chance to go home later today, however, I told him most likely he would be leaving tomorrow. Subjective Marcus was seen and examined at bedside this morning. He still having a lot of pain in his right knee. He has trouble with range of motion. It may be secondary to the drains. He is he was able to get some sleep last night. He has no other complaints.. Review of Systems All systems reviewed & are unremarkable except as noted in HPI & below. Physical Exam On physical examination the right knee, the drains were removed. He says his knee felt a little bit better. The patella is centralized. The incision looks good. He has active dorsiflexion plantarflexion of his right ankle.. Results & Data Results & Data Laboratory Results Microbiology 04/27/21 20:04 Knee,Right Gram Stain - Final 04/27/21 20:04 Knee,Right Aerobic and Anaerobic Culture - Preliminary Staphylococcus aureus 04/27/21 20:04 Knee,Right Gram Stain - Final 04/27/21 20:04 Knee,Right Aerobic and Anaerobic Culture - Preliminary Staphylococcus aureus 04/27/21 16:30 Knee,Right Gram Stain - Final 04/27/21 16:30 Knee,Right Aerobic and Anaerobic Culture - Preliminary Staphylococcus aureus . Diagnostic Findings . PG Care Time/CCT Total # of Minutes Spent Total Time Spent with Patient: Total time spent is greater than 50% in coordination of care (as documented) at patient's floor/unit and/or counseling patient: Coding Level of Care Code 02523 Post Operative Follow-Up Diagnoses Infection of total knee replacement T84.59XA; Z96.659
[2021-04-30 07:26] LABS: Creatinine Clr Calc Pharmacy 161.5 ml/min; Est GFR (African American) 124.7 ml/min; Est GFR (Non-African American) 107.6 ml/min
[2021-04-30] MEDS: NICOTINE 14 MG/24 HR PATCH TD SCH (08:13)
[2021-04-30] MEDS: ASPIRIN 81 MG ECTAB PO SCH ×2 (08:14→21:57)
[2021-04-30] MEDS: LOSARTAN POTASSIUM 50 MG TAB PO SCH (08:14)
[2021-04-30] MEDS: allopurinoL 100 MG TAB PO SCH (08:14)
[2021-04-30] MEDS: MELOXICAM 7.5 MG TAB PO SCH (08:14)
[2021-04-30] MEDS: METOPROLOL TARTRATE 25 MG TAB PO SCH ×2 (08:14→21:59)
[2021-04-30] MEDS: FOLIC ACID 1 MG TAB PO SCH (08:15)
[2021-04-30] MEDS: THIAMINE HCL 100 MG TAB PO SCH (08:15)
[2021-04-30] MEDS: ROSUVASTATIN CALCIUM 20 MG TAB PO SCH (08:15)
--- NOTE | 2021-04-30 08:17 | Hospitalist Progress Note ---
Date of Service April 30, 2021 Assessment & Plan (1) Infection of total knee replacement: Plan: - S/P R irrigation/debridement with polyexchange on 27 April - So far joint cultures reveal - MSSA - Consult ID ([facility])- for Abx options/route/duration -- Literature supports beta-lactams (Cefazolin would be an option however dosed Q8H) but some support oral options can be just as beneficial but anticipate 4-6 weeks coverage --> Switched to Daptomycin last evening (will hold Crestor for now, and if ID deems Ancef acceptable, would continue his crestor, otherwise hold and monitor weekly labs, CPK, etc while on Dapto) ID consultation pending -- possibly later today. PICC line consent obtained per primary service - DVT prophylaxis with ASA BID; pain regimen, PT/OT, bowel regimen, surgical management per primary (2) Alcohol abuse: Plan: - No signs of withdrawal at this time; Pt has never sustained from alcohol for long periods of time - AWSS protocol with PRN Ativan IV; as patient is not looking to quit at this time could consider ordering beer/liquor from pharmacy to prevent withdrawal - Continue thiamine/folate daily (3) Hypertension: Plan: - STABLE - Continue Losartan 100 mg AM and Lopressor 25 mg BID BP elevated to 160/99 this morning prior to medications and pain from drain (removed since) Continue home medications at discharge (4) Hyperlipidemia: Plan: - Continue Rosuvastatin 40 mg daily (holding while on Dapto but can resume if Ancef or other MSSA coverage as above) (5) Obstructive sleep apnea: Plan: - Had sleep study in the past - cannot tolerate CPAP - Reports utilizing supplemental O2 at night seemed to help him feel more rested - could follow-up with PCP to see if this is an option however not the optimal treatment for FADI (6) Tobacco abuse: Plan: - Nicotine patch; pt is considering quitting Plan: Disposition: - Appreciate ID consultation - will need coordination with case management/IV infusion should IV Abx be recommended - ID consult pending for today . PICC line obtained. Possible d/c per primary service once rec's obtained Admission and Anticipated Discharge Date Admission Date: April 27, 2021 Subjective Patient evaluated this morning. Much less pain with removal of his drain this morning. Pain controlled with ordered medications. No fever, chills, chest pain, shortness of breath, abdominal pain, nausea, vomiting or dysuria at this time. Awaiting ID consultation and placement of PICC, possibly later today. Discussed if remains on Dapto would hold his crestor, but otherwise can resume. Questions/concerns addressed at this time. Review of Systems Review of Systems: All systems reviewed & are unremarkable except as noted in HPI & below Physical Exam Physical Exam: PHYSICAL EXAM General Appearance: WDWN in NAD who is A&O x 3 HEENT: Head is normocephalic/atraumatic; Hearing grossly intact; Mucous membranes moist Neck: Supple; Trachea midline; Neg JVD Heart: RRR with no M/G/R Lungs: CTA in all lung cox bilaterally; Respirations unlabored; Neg accessory muscle use Abdomen: Soft, non-tender; Positive BS x 4 quadrants Extremities: +R knee with TARSHA wrap in place . DRAIN REMOVED THIS MORNING; Capillary refill < 2 seconds; Neg cyanosis or edema Neurological: Speech clear; Gross motor/sensory function intact; Neg focal neurologic deficits Psychiatric: Appropriate mood/affect; no signs of alcohol withdrawal; no tremors Skin: Normal Color; Warm/Dry Results & Data Results & Data ([facility]) Vital Signs (Past 12 Hours) Vital Signs Temp Pulse Pulse Resp BP BP Pulse Ox 04/30/21 07:10 36.9 C 85 16 160/99 H 159/98 H 94 04/29/21 22:08 36.6 C 73 16 133/83 93 04/29/21 21:26 85 134/82 Laboratory Results 04/30/21 04/30/21 04/30/21 Range/Units 05:34 05:34 05:30 WBC 9.62 (4.8-10.8) K/uL RBC 3.97 L (4.7-6.1) M/uL Hgb 12.9 L (14.0-18.0) g/dL Hct 40.1 L (42-52) % MCV 101.0 H (80-100) fL MCH 32.5 (25-34) pg MCHC 32.2 (32-36) g/dL RDW Std Deviation 46.8 H (36.4-46.3) fL RDW Coeff of Danny 12.7 (11.5-14.5) % Plt Count 287 (130-400) K/uL MPV 9.0 (7.4-10.4) fL Immature Gran % (Auto) 0.1 % Neut % (Auto) 70.2 % Lymph % (Auto) 13.0 % [place] % (Auto) 10.2 % Eos % (Auto) 6.0 % Baso % (Auto) 0.5 % Neut # (Auto) 6.75 H (1.4-6.5) K/uL Lymph # (Auto) 1.25 (1.2-3.4) K/uL [place] # (Auto) 0.98 H (0.11-0.59) K/uL Eos # (Auto) 0.58 H (0-0.5) K/uL Baso # (Auto) 0.05 (0-0.2) K/uL Immature Gran # (Auto) 0.01 (0.00-0.02) K/uL Sodium 141 (136-145) mmol/L Potassium 3.9 (3.5-5.1) mmol/L Chloride 106 (98-107) mmol/L Carbon Dioxide 25 (21-32) mmol/L Anion Gap 10.0 (3-11) BUN 11 (7-18) mg/dl Creatinine 0.74 0.74 (0.6-1.4) mg/dl Est Cr Clr Drug Dosing 161.5 161.5 ml/min Est GFR ( Amer) 124.7 124.7 ml/min Est GFR (Non-Af Amer) 107.6 107.6 ml/min BUN/Creatinine Ratio 14.2 (10-20) Glucose 85 (70-99) mg/dl POC Glucose (70-99) mg/dl Calcium 8.9 (8.5-10.1) mg/dl Total Bilirubin 0.4 (0.2-1) mg/dl AST 11 L (15-37) U/L ALT 22 (12-78) U/L Alkaline Phosphatase 67 (45-117) U/L Total Protein 6.9 (6.4-8.2) gm/dl Albumin 2.5 L (3.4-5.0) gm/dl Globulin 4.4 H (2.5-4.0) gm/dl Albumin/Globulin Ratio 0.6 L (0.9-2) Vancomycin Trough (See Comment) mcg/ml 08/04/29/21 04/29/21 Range/Units 20:38 11:40 11:39 WBC (4.8-10.8) K/uL RBC (4.7-6.1) M/uL Hgb (14.0-18.0) g/dL Hct (42-52) % MCV (80-100) fL MCH (25-34) pg MCHC (32-36) g/dL RDW Std Deviation (36.4-46.3) fL RDW Coeff of Danny (11.5-14.5) % Plt Count (130-400) K/uL MPV (7.4-10.4) fL Immature Gran % (Auto) % Neut % (Auto) % Lymph % (Auto) % [place] % (Auto) % Eos % (Auto) % Baso % (Auto) % Neut # (Auto) (1.4-6.5) K/uL Lymph # (Auto) (1.2-3.4) K/uL [place] # (Auto) (0.11-0.59) K/uL Eos # (Auto) (0-0.5) K/uL Baso # (Auto) (0-0.2) K/uL Immature Gran # (Auto) (0.00-0.02) K/uL Sodium (136-145) mmol/L Potassium (3.5-5.1) mmol/L Chloride (98-107) mmol/L Carbon Dioxide (21-32) mmol/L Anion Gap (3-11) BUN (7-18) mg/dl Creatinine 0.71 (0.6-1.4) mg/dl Est Cr Clr Drug Dosing 168.3 ml/min Est GFR ( Amer) 126.8 ml/min Est GFR (Non-Af Amer) 109.4 ml/min BUN/Creatinine Ratio (10-20) Glucose (70-99) mg/dl POC Glucose 94 (70-99) mg/dl Calcium (8.5-10.1) mg/dl Total Bilirubin (0.2-1) mg/dl AST (15-37) U/L ALT (12-78) U/L Alkaline Phosphatase (45-117) U/L Total Protein (6.4-8.2) gm/dl Albumin (3.4-5.0) gm/dl Globulin (2.5-4.0) gm/dl Albumin/Globulin Ratio (0.9-2) Vancomycin Trough 5.7 (See Comment) mcg/ml PG Care Time/CCT Total # of Minutes Spent Total Time Spent with Patient: Total time spent is greater than 50% in coordination of care (as documented) at patient's floor/unit and/or counseling patient: Coding Level of Care Code 73997 Subseq Hosp Care Lvl 2 Diagnoses Infection of total knee replacement T84.59XA; Z96.659 Alcohol abuse F10.10 Hypertension I10 Hyperlipidemia E78.5 Obstructive sleep apnea G47.33 Tobacco abuse Z72.0
[2021-04-30] MEDS ORDERED: hydrALAZINE HCL 20 MG/ML VIAL IV PRN (08:19)
[2021-04-30 08:58] LABS: Basophils # (auto) 0.05 K/uL (0-0.2); Basophils % (auto) 0.5 %; Eosinophils # (auto) 0.58 K/uL (0-0.5); Hematocrit (blood only) 40.1 % (42-52); Hemoglobin 12.9 g/dL (14.0-18.0); Immature Granulocytes # (auto) 0.01 K/uL (0.00-0.02); Immature Granulocytes % (auto) 0.1 %; Lymphocytes # (auto) 1.25 K/uL (1.2-3.4); Mean Corpuscular Hemoglobin 32.5 pg (25-34); Mean Corpuscular Hgb Conc 32.2 g/dL (32-36); Monocytes # (auto) 0.98 K/uL (0.11-0.59); Monocytes % (auto) 10.2 %; Neutrophils # (auto) 6.75 K/uL (1.4-6.5); Neutrophils % (auto) 70.2 %; Platelet Count 287 K/uL (130-400); RDW Coefficient of Variation 12.7 % (11.5-14.5); RDW Standard Deviation 46.8 fL (36.4-46.3); Red Blood Count 3.97 M/uL (4.7-6.1); White Blood Count 9.62 K/uL (4.8-10.8)
[2021-04-30 09:29] LABS: Albumin Level 2.5 gm/dl (3.4-5.0); BUN Creatinine Ratio 14.2 (10-20); Calcium 8.9 mg/dl (8.5-10.1); Creatinine Clr Calc Pharmacy 161.5 ml/min; Est GFR (African American) 124.7 ml/min; Est GFR (Non-African American) 107.6 ml/min; Potassium 3.9 mmol/L (3.5-5.1)
[2021-04-30 09:31] LABS: Albumin Globulin Ratio 0.6 (0.9-2); Bilirubin,Total 0.4 mg/dl (0.2-1); Globulin 4.4 gm/dl (2.5-4.0); Total Protein 6.9 gm/dl (6.4-8.2)
[2021-04-30] MEDS ORDERED: VANCOMYCIN CONSULT ACTIVE PRN (09:45)
[2021-04-30] MEDS: DOCUSATE SODIUM/SENNA 50/8.6MG TAB PO SCH (10:36)
[2021-04-30] MEDS: POLYETHYLENE (MIRALAX) 17 GM PACK PO SCH (10:37)
[2021-04-30] MEDS: oxyCODONE HCL IR 5 MG TAB (IMMEDIATE RELEASE) PO PRN (19:41)
[2021-04-30] MEDS: DAPTOmycin 575 MG in SYRINGE 0 ML IV SCH (21:56)
[2021-04-30] MEDS: PANTOprazole 40 MG TAB PO SCH (21:56)
[2021-05-01 06:31] LABS: Hematocrit (blood only) 40.5 % (42-52); Hemoglobin 13.5 g/dL (14.0-18.0); Mean Corpuscular Hemoglobin 32.6 pg (25-34); Mean Corpuscular Hgb Conc 33.3 g/dL (32-36); Mean Corpuscular Volume 97.8 fL (80-100); Mean Platelet Volume 8.9 fL (7.4-10.4); Platelet Count 284 K/uL (130-400); RDW Coefficient of Variation 12.8 % (11.5-14.5); RDW Standard Deviation 45.7 fL (36.4-46.3); Red Blood Count 4.14 M/uL (4.7-6.1); White Blood Count 10.12 K/uL (4.8-10.8)
[2021-05-01 06:58] LABS: Albumin Level 2.6 gm/dl (3.4-5.0); BUN Creatinine Ratio 13.5 (10-20); Calcium 9.4 mg/dl (8.5-10.1); Creatinine Clr Calc Pharmacy 183.8 ml/min; Est GFR (African American) 131.5 ml/min; Est GFR (Non-African American) 113.4 ml/min; Potassium 3.8 mmol/L (3.5-5.1)
[2021-05-01 07:01] LABS: Albumin Globulin Ratio 0.6 (0.9-2); Bilirubin,Total 0.4 mg/dl (0.2-1); Globulin 4.7 gm/dl (2.5-4.0); Total Protein 7.3 gm/dl (6.4-8.2)
[2021-05-01] MEDS: oxyCODONE HCL IR 5 MG TAB (IMMEDIATE RELEASE) PO PRN ×3 (07:30→20:31)
[2021-05-01] MEDS: LOSARTAN POTASSIUM 50 MG TAB PO SCH (08:56)
[2021-05-01] MEDS: ASPIRIN 81 MG ECTAB PO SCH ×2 (08:56→20:31)
[2021-05-01] MEDS: THIAMINE HCL 100 MG TAB PO SCH (08:56)
[2021-05-01] MEDS: FOLIC ACID 1 MG TAB PO SCH (08:57)
[2021-05-01] MEDS: allopurinoL 100 MG TAB PO SCH (08:57)
[2021-05-01] MEDS: MELOXICAM 7.5 MG TAB PO SCH (08:57)
[2021-05-01] MEDS: NICOTINE 14 MG/24 HR PATCH TD SCH (08:58)
[2021-05-01] MEDS: POLYETHYLENE (MIRALAX) 17 GM PACK PO SCH (08:58)
[2021-05-01] MEDS: DOCUSATE SODIUM/SENNA 50/8.6MG TAB PO SCH (09:01)
[2021-05-01] MEDS: METOPROLOL TARTRATE 25 MG TAB PO SCH ×2 (10:44→20:31)
--- NOTE | 2021-05-01 14:01 | Orthopedic Progress Note ---
Date of Service May 01, 2021 Assessment & Plan (1) Infection of total knee replacement: At this point is doing as well as expected. The pain in his knee is improving on the newer pain medications. He was seen by infectious disease today and they recommended Ancef 2 g IV every 8 hours for 6 weeks. They also recommended weekly lab work. We will get that set up through the hospitalist and through case management. He is orthopedically stable for discharge when the home antibiotics have been set up. He will follow-up with orthopedics in 2 weeks for staple removal. Subjective Marcus was seen and examined at bedside this morning. Overall he is doing a little bit better. His knee pain is a little bit more improved today. He already had his PICC line placed. He would like to leave today if he can. He has already been consulted by infectious disease. . Review of Systems All systems reviewed & are unremarkable except as noted in HPI & below. Physical Exam On physical examination of the right knee, the incision is clean and dry. There is a little bit of fluctuance medially. He can fully extend his knee. He has active dorsiflexion plantarflexion of his right ankle. . Results & Data Results & Data Laboratory Results . Diagnostic Findings . PG Care Time/CCT Total # of Minutes Spent Total Time Spent with Patient: Total time spent is greater than 50% in coordination of care (as documented) at patient's floor/unit and/or counseling patient: Coding Level of Care Code 03408 Post Operative Follow-Up Diagnoses Infection of total knee replacement T84.59XA; Z96.659
--- NOTE | 2021-05-01 14:34 | Hospitalist Progress Note ---
Date of Service May 01, 2021 Assessment & Plan (1) Infection of total knee replacement: Plan: - S/P R irrigation/debridement with polyexchange on 27 April - So far joint cultures reveal - MSSA - Consult ID ([facility])- for Abx options/route/duration -- Literature supports beta-lactams (Cefazolin would be an option however dosed Q8H) but some support oral options can be just as beneficial but anticipate 4-6 weeks coverage --> Switched to Daptomycin last evening (will hold Crestor for now, and if ID deems Ancef acceptable, would continue his crestor, otherwise hold and monitor weekly labs, CPK, etc while on Dapto) Right upper extremity PICC line placed today ID consultation undertaken this morning and discussed with Dr. Singh and provided prescriptions with weekly labs that he will monitor as an outpatient with plans to de-escalate to Levaquin when deemed appropriately -- For the time being we will discharge patient on Ancef 2 g every 8 IV for 6 weeks and start rifampin 300 mg p.o. twice daily starting on 05/09. Will have weekly CBC, CMP and CRP and once CRP is normalized we will transition to Levaquin p.o. to complete duration and prevent recurrence of infection Prescriptions were given to case management and they are arranging IV antibiotics discharge currently. Patient deemed medically stable when antibiotics arranged Elevation in blood pressure secondary to pain and is asymptomatic at this time however if continues to be elevated at outpatient follow-up with PCP would initiate additional antihypertensive therapy - DVT prophylaxis with ASA BID; pain regimen, PT/OT, bowel regimen, surgical management per primary (2) Alcohol abuse: Plan: - No signs of withdrawal at this time; Pt has never sustained from alcohol for long periods of time - AWSS protocol with PRN Ativan IV; as patient is not looking to quit at this time could consider ordering beer/liquor from pharmacy to prevent withdrawal - Continue thiamine/folate daily while inpatient And encourage cessation (3) Hypertension: Plan: - STABLE - Continue Losartan 100 mg AM and Lopressor 25 mg BID BP elevated to 152/92 this morning prior to medications, But also with pain however this is improved We will continue home medications at discharge and follow-up with PCP if remains elevated and increase antihypertensive agents as needed (4) Hyperlipidemia: Plan: - Continue Rosuvastatin 40 mg daily Now that he will no longer be on daptomycin (5) Obstructive sleep apnea: Plan: - Had sleep study in the past - cannot tolerate CPAP - Reports utilizing supplemental O2 at night seemed to help him feel more rested - follow-up with PCP to see if this is an option however not the optimal treatment for FADI (6) Tobacco abuse: Plan: - Nicotine patch; pt is considering quitting Plan: Antibiotic recommendations received by ID today during consultation and prescriptions for antibiotics and weekly labs were provided with case management. If able to arrange today patient may be medically discharged per primary service however if issues may need to remain inpatient until arrangements can be made . Thank you for allowing the hospitalist group to participate in the care of Mr. Turcios. Hospitalist service will follow along if remains inpatient however he is medically stable for discharge please call with any questions or concerns Admission and Anticipated Discharge Date Admission Date: April 27, 2021 Subjective Patient evaluated this morning. Feeling better with the change in pain medication. He has moved his bowels. Coordinated with Dr. Singh and plans for IV antibiotics after ID consultation this morning and provided prescriptions to case management to arrange for IV antibiotics at discharge. He had his PICC line placed in his right upper extremity this morning and is just awaiting acceptance of IV transfusion company this time. Denies any fevers, chills, chest pain, shortness of breath, abdominal pain, nausea, vomiting, dysuria at this time. Questions and concerns were addressed at this time. .He would like a dose of pain medication presently and alerted nursing of this to administer Review of Systems Review of Systems: All systems reviewed & are unremarkable except as noted in HPI & below Physical Exam Physical Exam: PHYSICAL EXAM General Appearance: WDWN in NAD who is A&O x 3 HEENT: Head is normocephalic/atraumatic; Hearing grossly intact; Mucous membranes moist Neck: Supple; Trachea midline; Neg JVD Heart: RRR with no M/G/R Lungs: CTA in all lung cox bilaterally; Respirations unlabored; Neg accessory muscle use Abdomen: Soft, non-tender; Positive BS x 4 quadrants Extremities: +R knee with TARSHA wrap in place . DRAIN REMOVED ; Capillary refill < 2 seconds; Neg cyanosis or edema. PICC to right upper extremity Neurological: Speech clear; Gross motor/sensory function intact; Neg focal neurologic deficits Psychiatric: Appropriate mood/affect; no signs of alcohol withdrawal; no tremors Skin: Normal Color; Warm/Dry Results & Data Results & Data ([facility]) Vital Signs (Past 12 Hours) Vital Signs Temp Pulse Resp BP Pulse Ox 05/01/21 07:17 36.9 C 88 16 152/92 H 92 Laboratory Results 05/01/21 05/01/21 Range/Units 05:59 05:59 WBC 10.12 (4.8-10.8) K/uL RBC 4.14 L (4.7-6.1) M/uL Hgb 13.5 L (14.0-18.0) g/dL Hct 40.5 L (42-52) % MCV 97.8 (80-100) fL MCH 32.6 (25-34) pg MCHC 33.3 (32-36) g/dL RDW Std Deviation 45.7 (36.4-46.3) fL RDW Coeff of Danny 12.8 (11.5-14.5) % Plt Count 284 (130-400) K/uL MPV 8.9 (7.4-10.4) fL Sodium 141 (136-145) mmol/L Potassium 3.8 (3.5-5.1) mmol/L Chloride 105 (98-107) mmol/L Carbon Dioxide 27 (21-32) mmol/L Anion Gap 9.0 (3-11) BUN 9 (7-18) mg/dl Creatinine 0.65 (0.6-1.4) mg/dl Est Cr Clr Drug Dosing 183.8 ml/min Est GFR ( Amer) 131.5 ml/min Est GFR (Non-Af Amer) 113.4 ml/min BUN/Creatinine Ratio 13.5 (10-20) Glucose 93 (70-99) mg/dl Calcium 9.4 (8.5-10.1) mg/dl Total Bilirubin 0.4 (0.2-1) mg/dl AST 12 L (15-37) U/L ALT 22 (12-78) U/L Alkaline Phosphatase 74 (45-117) U/L Total Protein 7.3 (6.4-8.2) gm/dl Albumin 2.6 L (3.4-5.0) gm/dl Globulin 4.7 H (2.5-4.0) gm/dl Albumin/Globulin Ratio 0.6 L (0.9-2) PG Care Time/CCT Total # of Minutes Spent Total Time Spent with Patient: Total time spent is greater than 50% in coordination of care (as documented) at patient's floor/unit and/or counseling patient: Coding Level of Care Code 28490 Subseq Hosp Care Lvl 2 Diagnoses Infection of total knee replacement T84.59XA; Z96.659 Alcohol abuse F10.10 Hypertension I10 Hyperlipidemia E78.5 Obstructive sleep apnea G47.33 Tobacco abuse Z72.0
[2021-05-01] MEDS: DAPTOmycin 575 MG in SYRINGE 0 ML IV SCH (15:46)
[2021-05-01] MEDS ORDERED: ceFAZolin 2000MG 2,000 MG/15 ML SYR IV SCH (16:00)
[2021-05-01] MEDS: PANTOprazole 40 MG TAB PO SCH (20:31)
[2021-05-02] MEDS: oxyCODONE HCL IR 5 MG TAB (IMMEDIATE RELEASE) PO PRN ×2 (00:47→08:17)
--- NOTE | 2021-05-02 06:34 | Orthopedic Progress Note ---
Date of Service May 02, 2021 Assessment & Plan (1) Infection of total knee replacement: He has been followed by infectious disease as well as the hospitalist. He is recommended to be discharged home on Ancef and oral rifampin. He has weekly labs ordered. The scripts were written. He will receive his last dose of Ancef around noon at the hospital today. He can then be discharged to home. He will start his IV antibiotics at home tomorrow. He will follow-up with orthopedics in 2 weeks to have the sutures removed. Bradley Velazquez was seen and examined at bedside this morning. Overall he continues to do fairly well. He is having a little bit of pain and swelling of his right knee. Hurts when he ambulates but is getting a little bit better. He has been on the IV Ancef and IV vancomycin. He has been seen by infectious disease. He is awaiting discharge to home later today.. Review of Systems All systems reviewed & are unremarkable except as noted in HPI & below. Physical Exam On physical examination of the right knee, there is some fluctuance on the medial side. This is a seroma from the procedure. His incision looks good. There is no drainage from the wound.. Results & Data Results & Data Laboratory Results . Diagnostic Findings . PG Care Time/CCT Total # of Minutes Spent Total Time Spent with Patient: Total time spent is greater than 50% in coordination of care (as documented) at patient's floor/unit and/or counseling patient: Coding Level of Care Code 36436 Post Operative Follow-Up Diagnoses Infection of total knee replacement T84.59XA; Z96.659
--- NOTE | 2021-05-02 06:38 | Discharge Summary ---
Date of Service May 02, 2021 Admission HPI (Per Admitting) Marcus is a pleasant 50-year-old male who underwent bilateral total knee arthroplasties 2 months ago. He did great for the first 2 months. He was having no pain in his knees. He was back to full activities. Unfortunately he began having a fever yesterday. His fever was 101 degrees. His fever broke today but then he said his knee began to swell and become very painful. He had trouble ambulating. He called our office and I told him to go to the emergency room immediately. I saw him in the emergency room and aspirated his knee. We obtained blood work which showed an elevated white blood cell count, and elevated sed rate, and an elevated CRP. The knee aspiration showed concerns for infection as well. After discussions at bedside, he elected to proceed with an urgent irrigation debridement of the right knee with polyethylene exchange. We will admit him to the orthopedic service.. Admission Exam (Per Admitting) On physical examination of the right knee, there is a large effusion. There is a little bit of redness but not much. He is able to ambulate but he has an antalgic gait. He has decreased range of motion of his knee.. Principal Diagnosis Same as "Discharge Diagnosis" noted below under Discharge Instructions. Discharge Exam On physical examination of the right knee, there is some fluctuance on the medial side. This is a seroma from the procedure. His incision looks good. There is no drainage from the wound.. Discharge Data Consultations 04/27/21 17:53 ED Decision to Admit Stat 04/27/21 22:29 Consult Internal Medicine Routine 04/29/21 08:28 Consult Infectious Diseases Routine Procedures Performed Operation Date: 04/27/21 20:00 Actual Procedures p Right Knee Irrigation and Debridement and Poly Exchange(Right) - Kodi Singh DO Hospital Course (1) Infection of total knee replacement: On April 27, 2021 Marcus came to [facility] emergency room with a hot and swollen right knee. An aspiration was done in the emergency room and he was taken directly to the operating room for an urgent open irrigation debridement with polyexchange of the right knee. He tolerated the procedure well. Cultures were taken during the procedure and he was started on IV vancomycin immediately afterwards. He was then discharged to the general orthopedic floors. His hospital course was relatively uneventful. On postop day #1 his vital signs were stable. He had some pain in the knee. He was on the IV vancomycin and the hospitalist was consulted. We were still waiting culture and sensitivities. On postop day #2 his knee pain was slightly improved. The drains were still putting out a little bit of bloody discharge. He continued on the IV vancomycin. On postop day #3 the drains were pulled. He was switched from IV vancomycin to IV daptomycin. Infectious disease consult was placed. On postop day #4 a PICC line was placed and he was seen by infectious disease. Infectious disease recommended switching him to IV Ancef every 8 hours and started him on oral rifampin next week. He continues to slowly improve. His vital signs were stable and he was afebrile. On postop day #5 he was doing well. He still had some swelling and some pain in his knee but there were no signs of infection. He was able to bear weight. He was then discharged to home on IV antibiotics and oral rifampin to start next week. He will follow-up with orthopedics in 2 weeks for staple removal. PG Care Time/CCT Total # of Minutes Spent Total Time Spent with Patient: Total time spent is greater than 50% in coordination of care (as documented) at patient's floor/unit and/or counseling patient: Discharge Plan Discharge Items Patient Disposition: Home - Home Health Services Reason For Visit: RIGHT PERIPROSTHETIC JOINT INFECTION Discharge Diagnosis: Irrigation debridement of the right knee joint Activity: As commented below Non-emergency contact: Surgeon Call non-emergency contact if: your wound has increased redness and your wound has increased drainage Follow-up/Referrals: Gasper Ramirez MD [Primary Care Provider] - 05/08/21 11:00 am (appt with JACQUE Hodge) Kodi Singh DO [Physician] - 05/09/21 1:10 pm Diet: Regular Addtl Attending Provider Instructions: Activity and Therapy Recommendations: * It is important not to put a pillow under your knee when you are relaxing or sleeping. It is just as important to make sure you are getting your knee perfectly straight as it is to regain your knee bend. * You were shown a series of exercises in the hospital. Do these exercises three times each day including the exercises you were shown in physical therapy. * Get up and walk several times each day. For the first four weeks, try not to stand or walk for more than one hour at a time. If you do stand or walk for more than one hour, you will not hurt anything, but your leg will likely swell. * As you feel comfortable, you may change from the walker or crutches to a cane and then to independent walking. Medications: * Narcotic You will likely be sent home from the hospital with a prescription for the narcotic pain medication that worked best throughout your stay. * Aspirin Most patients will be required to take Aspirin 81mg twice a day for 6 weeks after surgery. This is obtained [id number] and a prescription is not necessary. * Take your antibiotics as prescribed by infectious disease * Resume previous home medications unless otherwise instructed TEDs/Elastic Stockings: The white elastic stockings help limit swelling and prevent blood clots from forming in your legs.~ The more you wear them, the more they work. Wear them for six weeks. Dressing Care: The dressing can be changed after physical therapy on postop day #1. Daily dry dressing changes for a few days, especially if the incision is still draining some. If the incision is not draining then you may leave the steve open to air. If there is a little bit of drainage or if the steve are getting stuck on your clothing then cover the incision with a dry dressing. The steve will be removed at your 2 week follow-up appointment. Showering: You may shower 5 days from the day of surgery as long as the incision is no longer draining. You may shower with the steve exposed. Let soapy water run over the steve and pat them dry. Do not scrub or soak the incision. Things To Watch For: * Drainage from the incision site that occurs more than one week after your surgery. * Increased redness at the incision site. * Fever above 102 degrees Fahrenheit. * Unusual chest pain or shortness of breath. * Call [facility] at with any of the above problems Follow-Up Visit: Follow-up with Dr. Singh's PA (Kodi Rubi) 2-3 weeks after your day of surgery. He will remove your steve and answer any questions. If you have any additional questions or concerns, Dr Singh is usually in the office at the same time and will be available An appointment was probably scheduled when you signed-up for surgery in the office. If you have any questions call Office Instructions: More detailed instructions as well as Frequently Asked Questions were provided in a folder by our office when you signed-up for surgery. Please review these instructions when you get home. If you have any further questions or concerns, please feel free to call the office at [phone] Add Division Operations Specialist Provider Instructions: You will be continued on Ancef IV 2gm IV every 8 hours and will have Rifampin 300mg by mouth twice daily to be started on 05/09/21. You will have weekly labs drawn while on these and once levels for inflammation fall to a certain level, Dr Singh may switch you to oral Levaquin as recommended by infectious disease. It is encouraged to avoid alcohol and tobacco to help with wound healing. It is also recommended to continue to monitor your blood pressure as it has been elevated, but can be due to pain, and if still elevated once pain controlled you may need to consider increasing your blood pressure medications with your primary care provider at follow up. Pending Studies at Discharge: No Stand-Alone Forms: My [facility] [employer], Smoking Cessation Medications and DC Order Prescriptions: New aspirin 81 mg Tablet,Delayed Release (Dr/Ec) 81 mg PO BID 42 Days Qty: 84 RF: 0 cefazolin 1 gram recon soln 2 g IV Q8H Qty: 25 RF: 0 rifampin 300 mg capsule 300 mg PO Q12H 35 Days Qty: 70 RF: 0 Continued metoprolol tartrate 25 mg tablet 25 mg PO Q12H Qty: 180 RF: 3 omeprazole 20 mg capsule,delayed release(DR/EC) 20 mg PO QPM Qty: 30 RF: 5 meloxicam [Mobic] 15 mg tablet 15 mg PO QAM Qty: 30 RF: 5 losartan 100 mg tablet 100 mg PO QAM Qty: 90 RF: 3 Sutab 1.479-0.188- 0.225 gram tablet See Rx Instructions PO .COMPLEX Qty: 24 RF: 0 rosuvastatin 40 mg tablet 40 mg PO DAILY Qty: 90 RF: 3 oxycodone 5 mg tablet 5 mg PO Q6H PRN (Reason: pain) Qty: 30 RF: 0 albuterol sulfate [Proventil HFA] 90 mcg/actuation HFA aerosol inhaler 2 puffs INH Q6H PRN (Reason: Wheezing) RF: 0 allopurinol [Zyloprim] 100 mg tablet 100 mg PO QAM RF: 0 oxycodone-acetaminophen [Percocet] 5-325 mg tablet 1 tab PO Q6H PRN (Reason: pain) Qty: 40 RF: 0 Discharge Orders: Discharge Order (Routine); Ordered 05/02/21 Ordered By: Kodi Singh Admission Data Admit Date/Time: 04/27/21 21:21 Attending Provider: Kodi Singh Admit Provider: Kodi Singh Primary Care Provider: Gasper Ramirez Other Providers: Kodi Singh ; Kelton Blanca ; Sury Oliva ; Phill Kessler ; Jacqueline Pablo ; Dick Weinberg ; Svetlana Dwyer ; Michelet De Leon ; Vipin Tripp III ; Mckenzie Fragoso ; Delia Felix V. ; Vinita Goode ; Re Vieyra I. ; Sheba Chavez ; Lindsay Levy ; Milla Valdes ; Sofia Pablo ; Mili Wilson ; Gely Kessler ; Erum Arrington ; Fidelina Calle ; Kodi Snyder ; Emeka De La Paz ; Avinash Rosario ; Carey Ramirez ; Danilo Pablo I. ; Chetan Serna II ; Lilibeth Hoover ; Raciel Espinoza ; Lionel Keating ; [facility] Other Interventions: Discharge Summary Assessment (RN) Last Done: 05/01/21 14:58
[2021-05-02] MEDS: MELOXICAM 7.5 MG TAB PO SCH (08:12)
[2021-05-02] MEDS: THIAMINE HCL 100 MG TAB PO SCH (08:12)
[2021-05-02] MEDS: METOPROLOL TARTRATE 25 MG TAB PO SCH (08:12)
[2021-05-02] MEDS: ASPIRIN 81 MG ECTAB PO SCH (08:12)
[2021-05-02] MEDS: allopurinoL 100 MG TAB PO SCH (08:12)
[2021-05-02] MEDS: NICOTINE 14 MG/24 HR PATCH TD SCH (08:13)
[2021-05-02] MEDS: LOSARTAN POTASSIUM 50 MG TAB PO SCH (08:13)
[2021-05-02] MEDS: FOLIC ACID 1 MG TAB PO SCH (08:13)
[2021-05-02] MEDS: DOCUSATE SODIUM/SENNA 50/8.6MG TAB PO SCH (08:13)
[2021-05-02] MEDS: POLYETHYLENE (MIRALAX) 17 GM PACK PO SCH (08:14)
[2021-05-02] MEDS: DAPTOmycin 575 MG in SYRINGE 0 ML IV SCH (09:03)
[2021-05-02] MEDS ORDERED: ceFAZolin 2000MG 2,000 MG/15 ML SYR IV ONE (12:00)
--- NOTE | 2021-05-02 19:18 | Communication Note ---
Date of Service: May 02, 2021 Arrangements were made for IV antibiotics for discharge today. Discussed with nursing and no acute needs from medical standpoint. Discharged before seen. Patient's vitals were stable with the exception of slightly elevated blood pressure but was asymptomatic and likely secondary to pain. Got dose of daptomycin last evening an additional Ancef this afternoon for coverage and IV infusion to begin with Ancef in addition of of vamp and on 05/09 and weekly labs are to be drawn. Case management was provided with prescription for this information was relayed to the patient he already had a PICC line placed yesterday by IV team. Once CRP falls acceptable levels Dr. Singh will transition to oral antibiotics. Results of weekly lab testing while on these antibiotics are to be forwarded to Dr. Singh for continued monitoring.
== END 2021-05-02 13:00 | disposition home health service (06) | DRG 464 ==
LOC: ED 14:13 → OR 19:10 → 3E 21:21